=== PATIENT | female | born 1955 | race Caucasian/White ===

== ENCOUNTER 2016-08-10 00:05 | Observation (INO) | payer BC ==
[~2016-08-10] VITALS: Ht 157.5 cm; Wt 58.8 kg
[~2016-08-10 00:05] MED LIST: LISI5TAB3 PO; OLAN-111 PO; [UNRECOGNIZED DRUG - CODE] PO
[2016-08-10] MEDS ORDERED: ASPIRIN 324 MG CHEW PO STA (00:34)
[2016-08-10 00:45] LABS: BASO % 0.3 %; BASO ABS # 0.03 K/uL (0-0.2); COMPLETE YES; EOS % 3.2 %; HEMATOCRIT 34.9 % (37-47); IG% 0.2 %; LYMPH % 28.7 %; MEAN CELL VOLUME 87.7 fL (80-100); MEAN CORPUSCULAR HEMOGLOBIN 30.2 pg (25-34); MEAN CORPUSCULAR HGB CONC 34.4 g/dl (32-36); MEAN PLATELET VOLUME 10.1 fL (7.4-10.4); MONO % 6.7 %; NEUT % 60.9 %; PLATELET COUNT 212 K/uL (130-400); RED BLOOD COUNT 3.98 M/uL (4.2-5.4)
--- NOTE | 2016-08-10 00:48 | EMERGENCY ROOM VISIT NOTE ---
History Report prepared by Fidel: Genevieve Koo Under the Supervision of: Dr. Fadia Hemphill M.D. First contact with patient: 00:24 Chief Complaint: CARDIAC ASSESSMENT Stated Complaint: PRICKLY CRAMPS IN HEART,IN JAW AND LFT HAND/ELBOW History of Present Illness The patient is a 60 year old female who presents to the Emergency Room with complaints of intermittent left sided chest discomfort that began at the beginning of July. The patient states that she has had occasional "prickly cramping" pain in her chest for the past 20 years. The pain was not frequent and occurred at random times. At the beginning at the month, she started having left sided chest pain much more frequently. When her first episode occurred, it felt like a cramping sensation in her chest. She thought she could have been swimming too fast so she slowed down to finish her work out. She has worked out multiple times and has been pain free, but she had another episode of the pain while swimming yesterday. She describes the pain at that time as a nerve pain. Per nursing staff, the patient had 8-10 episodes today which concerned her. When she has the chest pain she does not feel short of breath, but she states that she gets scared to take deep breaths in case something bad would happen. The patient had a stress test which was over 10 years ago. She has a history of CKD and her creatinine runs between 1.4 and 1.6. She reports recent travel to [facility] at the end of last month. She is not a smoker. Denies abdominal pain, nausea, diarrhea, or other complaints. She usually has a bowel movement a day but she has not had a bowel movement for 2 days. Past medical history includes diabetes and hypertension. The patient takes aspirin and took 81 mg today. Source of History: patient Onset: beginning of July Position: chest (left) Quality: other (prickly, cramping) Timing: intermittent Associated Symptoms: No SOB, No abdominal pain, No diarrhea, No nausea Review of Systems See HPI for pertinent positives & negatives. A total of 10 systems reviewed and were otherwise negative. Past Medical & Surgical Medical Problems: (1) Bipolar disorder (2) CKD (chronic kidney disease) (3) Diabetes (4) Hypertension (5) Rhabdomyolysis Family History Cancer Depression Diabetes mellitus Hypertension Kidney disease Social History Smoking Status: Never Smoker Marital Status: Housing Status: lives with significant other Occupation Status: employed Current/Historical Medications Scheduled Alprazolam (Xanax), 0.25 MG PO HS Ascorbic Acid (C-1000/Kayla Hips), 500 MG PO QAM Aspirin (Aspirin Ec), 81 MG PO HS Atorvastatin (Lipitor), 10 MG PO HS Cholecalciferol (Vitamin D3), 2,000 UNITS PO DAILY Coenzyme Q10 (Ubidecarenone) (Co Q10), 100 MG PO BIDM Divalproex Sodium (Depakote), 500 MG PO HS Lisinopril (Zestril), 5 MG PO QAM Multivitamin (Multivitamin), 1 TAB PO DAILY Olanzapine (Zyprexa), 5 MG PO HS Vitamin B Cmplx/Vitc/Folic Ac (Nephrocaps), 1 CAP PO DAILY Allergies Coded Allergies: No Known Allergies (Unverified , 09/11/06) Physical Exam Vital Signs Date Time Temp Pulse Resp B/P Pulse Ox O2 Delivery O2 Flow Rate FiO2 08/10/16 02:15 77 21 109/82 100 Room Air 08/10/16 01:03 69 13 105/73 100 Room Air 08/10/16 00:40 83 08/10/16 00:33 79 24 133/76 98 Room Air 08/10/16 00:30 99 Room Air 08/10/16 00:30 99 Room Air 08/10/16 00:17 36.6 78 20 118/72 99 Room Air Physical Exam Vital signs reviewed. General: Well-appearing 60 year old female, in no significant distress. HEENT: No scleral icterus, PERRLA, neck supple. Atraumatic. Cardiovascular: Regular rate and rhythm, no extra sounds. Pulmonary: Clear to auscultation bilaterally, normal work of breathing. Abdomen: Soft, nontender, nondistended, positive bowel sounds. Musculoskeletal: Atraumatic, no peripheral edema. Neurologic: Patient awake alert and oriented x 3, full strength in all 4 extremities. Cranial nerves 2 through 12 grossly intact. Skin: Warm, dry, no rash Medical Decision & Procedures ER Provider Diagnostic Interpretation: X-ray per my interpretation. Chest x-ray: No focal consolidation. No failure. Laboratory Results Test 08/10/16 00:35 08/10/16 00:43 08/10/16 01:25 Immature Granulocyte % (Auto) 0.2 % White Blood Count 10.10 K/uL (4.8-10.8) Red Blood Count 3.98 M/uL (4.2-5.4) Hemoglobin 12.0 g/dL (12.0-16.0) Hematocrit 34.9 % (37-47) Mean Corpuscular Volume 87.7 fL (80-100) Mean Corpuscular Hemoglobin 30.2 pg (25-34) Mean Corpuscular Hemoglobin Concent 34.4 g/dl (32-36) Platelet Count 212 K/uL (130-400) Mean Platelet Volume 10.1 fL (7.4-10.4) Neutrophils (%) (Auto) 60.9 % Lymphocytes (%) (Auto) 28.7 % Monocytes (%) (Auto) 6.7 % Eosinophils (%) (Auto) 3.2 % Basophils (%) (Auto) 0.3 % Neutrophils # (Auto) 6.15 K/uL (1.4-6.5) Lymphocytes # (Auto) 2.90 K/uL (1.2-3.4) Monocytes # (Auto) 0.68 K/uL (0.11-0.59) Eosinophils # (Auto) 0.32 K/uL (0-0.5) Basophils # (Auto) 0.03 K/uL (0-0.2) Immature Granulocyte # (Auto) 0.02 K/uL (0.00-0.02) Prothrombin Time 10.5 SECONDS (9.0-12.0) Prothromb Time International Ratio 1.0 (0.9-1.1) Magnesium Level 2.5 mg/dl (1.8-2.4) Total Bilirubin 0.2 mg/dl (0.2-1) Direct Bilirubin < 0.1 mg/dl (0-0.2) Aspartate Amino Transf (AST/SGOT) 42 U/L (15-37) Alanine Aminotransferase (ALT/SGPT) 32 U/L (12-78) Alkaline Phosphatase 58 U/L (45-117) Creatine Kinase MB 1.0 ng/ml (0.5-3.6) Creatine Kinase MB Ratio 0.1 (0-3.0) Total Protein 8.1 gm/dl (6.4-8.2) Albumin 3.9 gm/dl (3.4-5.0) Bedside D-Dimer 89 ng/mlFEU (0-450) Bedside Troponin I 0.000 ng/ml (0-0.045) Urine Color COLORLESS Urine Appearance CLEAR (CLEAR) Urine pH 6.5 (4.5-7.5) Urine Specific [place] <= 1.005 (1.000-1.030) Urine Protein NEG (NEG) Urine Glucose (UA) NEG (NEG) Urine Ketones NEG (NEG) Urine Occult Blood NEG (NEG) Urine Nitrite NEG (NEG) Urine Bilirubin NEG (NEG) Urine Urobilinogen NEG (NEG) Urine Leukocyte Esterase NEG (NEG) Laboratory results per my review. Medications Administered Medications (Trade) Dose Ordered Sig/Birgit Route Start Time Stop Time Status Last Admin Dose Admin Aspirin (Aspirin Chew) 324 mg NOW STAT PO 08/10/16 00:34 08/10/16 00:37 DC 08/10/16 01:10 243 MG ECG Indication: chest pain Rate (beats per minute): 83 Findings: RBBB (incomplete), no acute ischemic change, no ectopy ED Course 0030: Past medical records reviewed. The patient was evaluated in room B9. A complete history and physical examination was performed. 0034: Ordered Aspirin 324 mg PO. 0218: Upon reevaluation, the patient is resting comfortably. I discussed laboratory and radiographic results with the patient. She verbalized agreement of the treatment plan. 0240: I discussed the case with Dr. Dugan [place] [facility]. The patient will be evaluated for further management. Medical Decision DDx: Acute coronary syndrome, pulmonary embolus, aortic dissection, musculoskeletal pain, pneumonia, pleural effusion, pneumothorax This pt was evaluated and appeared to be in no distress. IV access was obtained and lab work was drawn. Pt was given baby ASA. Pt was placed on the credit control manager. EKG reveals no acute ischemia with a RBB. CXR is negative to my interpretation. Lab work reveals a neg troponin but elevated total CK of 936. Pt was informed of the findings. B/c of her history of hyperlipidemia and DM, she will be evaluated by the hospitalist for further management. Consults Time Called: [phone] Consulting Physician: Dr. Dugan Returned Call: 0240 I discussed the case with him. The patient will be evaluated for further management. Impression Primary Impression: Exertional chest pain Additional Impression: Elevated CK Scribe Attestation The scribe's documentation has been prepared under my direction and personally reviewed by me in its entirety. I confirm that the note above accurately reflects all work, treatment, procedures, and medical decision making performed by me. Departure Information Dispostion Being Evaluated By Hospitalist Referrals Willie Ragland M.D. (PCP) Patient Instructions [facility] Problem Qualifiers
[2016-08-10 01:05] LABS: ALT/SGPT 32 U/L (12-78); BLOOD UREA NITROGEN 40 mg/dl (7-18); BUN/CREATININE RATIO 24.7 (10-20); CALCIUM 9.1 mg/dl (8.5-10.1); CARBON DIOXIDE 26 mmol/L (21-32); CHLORIDE 100 mmol/L (98-107); GLUCOSE 92 mg/dl (70-99); MAGNESIUM 2.5 mg/dl (1.8-2.4); POTASSIUM 4.2 mmol/L (3.5-5.1); SODIUM 138 mmol/L (136-145)
[2016-08-10 01:08] LABS: ALKALINE PHOSPHATASE 58 U/L (45-117); AST/SGOT 42 U/L (15-37); CKMB/CK RATIO 0.1 (0-3.0)
[2016-08-10 01:56] LABS: MANUAL MICROSCOPIC REQUIRED? NO; REVIEW REQ? NO; URINE APPEARANCE CLEAR (CLEAR); URINE BILIRUBIN NEG (NEG); URINE COLOR COLORLESS; URINE NITRITE NEG (NEG); URINE PH 6.5 (4.5-7.5); URINE SPECIFIC GRAVITY <= 1.005 (1.000-1.030); UROBILINOGEN NEG (NEG)
[2016-08-10] MEDS ORDERED: ASPI81TA28 PO (01:56)
[2016-08-10 01:57] LABS: ZZUR CULT IF INDIC CLEAN CATCH NO
[2016-08-10] MEDS ORDERED: ATOR10TA88 PO (01:57)
[2016-08-10] MEDS ORDERED: DIVA500T59 PO (01:58)
[2016-08-10] MEDS ORDERED: ALPR0.25 PO (02:00)
[2016-08-10] MEDS ORDERED: [UNRECOGNIZED DRUG - CODE] PO (02:01)
[2016-08-10] MEDS ORDERED: MULT-506 PO (02:02)
[2016-08-10] MEDS ORDERED: CHOL20007 PO (02:03)
[2016-08-10] MEDS ORDERED: B-CO1CAP17 PO (02:04)
[2016-08-10] MEDS ORDERED: COEN1CAP28 PO (02:06)
[2016-08-10] MEDS ORDERED: MAGNESIUM HYDROXIDE SUSP 30 ML UDC PO PRN (02:45)
[2016-08-10] MEDS ORDERED: ACETAMINOPHEN 325 MG TAB PO PRN (02:45)
[2016-08-10] MEDS ORDERED: ALUMINUM/MAGNESIUM/SIMETH (MAALOX MAX) 30 ML UDC PO PRN (02:45)
[2016-08-10] MEDS ORDERED: POLYETHYLENE (MIRALAX) 17 GM PACK PO PRN (02:45)
[2016-08-10] MEDS ORDERED: ALPRAZOLAM 0.5 MG TAB PO PRN (02:45)
[2016-08-10] MEDS ORDERED: ONDANSETRON INJ 2 MG/ML 2 ML VIAL IV PRN (02:45)
--- NOTE | 2016-08-10 02:47 | History and Physical ---
History & Physical Date & Time of Service: Aug 10, 2016 at 02:41 Chief Complaint: Prickly Cramps In Heart,In Jaw And Lft Hand/Elbow Primary Care Physician: Willie Ragland M.D. History of Present Illness Source: patient Mrs Brandie Pires is a 60 yo F with bipolar disorder and a long history of chest pain who presents with new chest discomfort since earlier today. She reports she has recently started exerciisng again and swam for an hour yesterday , and did about 60 labs. She reports she went to work today and although she drank usual amounts she felt a prickly sensation in the left side of her chest. She did not report is as pain, and it did not radiate down her arm. It could come and go at rest or exertion as well. It was 9/10 severity. She does not currently have any pain. She last had a stress test 10 years ago. She reports she has had chest pain for the last 20 years without a cause identified. She reports she has CKD from being on metformin for a year. Past Medical/Surgical History Medical Problems: (1) Bipolar disorder Status: Chronic (2) CKD (chronic kidney disease) Status: Chronic (3) Diabetes Status: Chronic (4) Hypertension Status: Chronic Family History Cancer Depression Diabetes mellitus Hypertension Kidney disease Social History Smoking Status: Never Smoker Marital Status: Occupational Status: employed Multi-Drug Resistant Organisms History of MDRO: No Allergies Coded Allergies: No Known Allergies (Unverified , 09/11/06) Home Medications Scheduled Alprazolam (Xanax), 0.25 MG PO HS Ascorbic Acid (C-1000/Kayla Hips), 500 MG PO QAM Aspirin (Aspirin Ec), 81 MG PO HS Atorvastatin (Lipitor), 10 MG PO HS Cholecalciferol (Vitamin D3), 2,000 UNITS PO DAILY Coenzyme Q10 (Ubidecarenone) (Co Q10), 100 MG PO BIDM Divalproex Sodium (Depakote), 500 MG PO HS Lisinopril (Zestril), 5 MG PO QAM Multivitamin (Multivitamin), 1 TAB PO DAILY Olanzapine (Zyprexa), 5 MG PO HS Vitamin B Cmplx/Vitc/Folic Ac (Nephrocaps), 1 CAP PO DAILY Review of Systems See HPI for pertinent positives & negatives. A total of 10 systems reviewed and were otherwise negative. Physical Exam Vital Signs Date Time Temp Pulse Resp B/P Pulse Ox O2 Delivery O2 Flow Rate FiO2 08/10/16 02:15 77 21 109/82 100 Room Air 08/10/16 01:03 69 13 105/73 100 Room Air 08/10/16 00:40 83 08/10/16 00:33 79 24 133/76 98 Room Air 08/10/16 00:30 99 Room Air 08/10/16 00:30 99 Room Air 08/10/16 00:17 36.6 78 20 118/72 99 Room Air General Appearance: WD/WN, no apparent distress Head: normocephalic, atraumatic Eyes: normal inspection ENT: hearing grossly normal Neck: supple, no JVD Respiratory/Chest: lungs clear, normal breath sounds, no respiratory distress Cardiovascular: regular rate, rhythm, no murmur, normal peripheral pulses Abdomen/GI: normal bowel sounds, non tender, soft Back: no CVA tenderness, no muscle spasm, normal range of motion Extremities/Musculoskelatal: normal capillary refill, no pedal edema Neurologic/Psych: alert, + pertinent finding (ANXIOUS, Flattened affect) Skin: no rash Diagnostics Laboratory Results Results Past 24 Hours Test 08/10/16 00:35 08/10/16 00:43 08/10/16 01:25 Range/Units White Blood Count 10.10 4.8-10.8 K/uL Red Blood Count 3.98 4.2-5.4 M/uL Hemoglobin 12.0 12.0-16.0 g/dL Hematocrit 34.9 37-47 % Mean Corpuscular Volume 87.7 80-100 fL Mean Corpuscular Hemoglobin 30.2 25-34 pg Mean Corpuscular Hemoglobin Concent 34.4 32-36 g/dl Platelet Count 212 130-400 K/uL Mean Platelet Volume 10.1 7.4-10.4 fL Neutrophils (%) (Auto) 60.9 % Lymphocytes (%) (Auto) 28.7 % Monocytes (%) (Auto) 6.7 % Eosinophils (%) (Auto) 3.2 % Basophils (%) (Auto) 0.3 % Neutrophils # (Auto) 6.15 1.4-6.5 K/uL Lymphocytes # (Auto) 2.90 1.2-3.4 K/uL Monocytes # (Auto) 0.68 0.11-0.59 K/uL Eosinophils # (Auto) 0.32 0-0.5 K/uL Basophils # (Auto) 0.03 0-0.2 K/uL RDW Standard Deviation 39.3 36.4-46.3 fL RDW Coefficient of Variation 12.2 11.5-14.5 % Immature Granulocyte % (Auto) 0.2 % Immature Granulocyte # (Auto) 0.02 0.00-0.02 K/uL Sodium Level 138 136-145 mmol/L Potassium Level 4.2 3.5-5.1 mmol/L Chloride Level 100 98-107 mmol/L Carbon Dioxide Level 26 21-32 mmol/L Anion Gap 12.0 3-11 mmol/L Blood Urea Nitrogen 40 7-18 mg/dl Creatinine 1.60 0.60-1.20 mg/dl Est Creatinine Clear Calc Drug Dose 32.6 ml/min Estimated GFR () 40.5 Estimated GFR (Non- 34.9 BUN/Creatinine Ratio 24.7 10-20 Random Glucose 92 70-99 mg/dl Calcium Level 9.1 8.5-10.1 mg/dl Magnesium Level 2.5 1.8-2.4 mg/dl Total Bilirubin 0.2 0.2-1 mg/dl Direct Bilirubin < 0.1 0-0.2 mg/dl Aspartate Amino Transf (AST/SGOT) 42 15-37 U/L Alanine Aminotransferase (ALT/SGPT) 32 12-78 U/L Alkaline Phosphatase 58 45-117 U/L Total Creatine Kinase 936 26-192 U/L Creatine Kinase MB 1.0 0.5-3.6 ng/ml Creatine Kinase MB Ratio 0.1 0-3.0 Total Protein 8.1 6.4-8.2 gm/dl Albumin 3.9 3.4-5.0 gm/dl Lipase 443 73-393 U/L Bedside D-Dimer 89 0-450 ng/mlFEU Bedside Troponin I 0.000 0-0.045 ng/ml Urine Color COLORLESS Urine Appearance CLEAR CLEAR Urine pH 6.5 4.5-7.5 Urine Specific [place] <= 1.005 1.000-1.030 Urine Protein NEG NEG Urine Glucose (UA) NEG NEG Urine Ketones NEG NEG Urine Occult Blood NEG NEG Urine Nitrite NEG NEG Urine Bilirubin NEG NEG Urine Urobilinogen NEG NEG Urine Leukocyte Esterase NEG NEG CXR normal Normal EKG Impression Assessment and Plan 60 yo F found to have elevated CK and mild renal impairment after exercising - concerned for rhabdomyolysis. PLAN Rhabdomyolysis - NSS 150mL/hour - Trend CK levels - Med/Surg, observation - Hold statin CAD - Continue aspirin Bipolar disorder - Continue Depakote and Olanzapine Anxiety - Continue Xanax at night FULL CODE *NOTE: patient is incredibly anxious about having to be on dialysis due to renal impairment - multiple questions answered. She is then anxious about if she is able to swim tomorrow, I told her this would be determined by the discharge team. VTE Prophylaxis VTE Risk Assessment Done? Y/N: Yes Risk Level: Moderate Resident Tracking Resident Involvement: Resident Care Provided Care Provided: [facility] Medicine Assessment and Plan ATTENDING ADDENDUM: I have seen and examined this patient, have directed their medical care, have supervised the biomedical specialist, and agree with the H&P as noted above, with the additions as noted below. History of Present Illness: The patient is a 60-year-old female with a 20+ year history of intermittent chest discomfort, who swims 55-60 laps daily and one hour, developed a different type of left-sided chest sensation that was prickly in nature, and presented to the emergency department with concerns regarding heart disease. This was not a pain per se, and did not radiate toward her jaw shoulder or arm. She did have a stress test done approximately 10 years ago which was normal. She reports that she developed chronic kidney disease from being on metformin for year. Review of Systems: The patient denies chest pain, palpitations, shortness of breath, cough, lower extremity swelling, vision change, hearing change, sore throat, fevers, chills, sweats, weight change, fatigue, nausea, vomiting, abdominal pain, pelvic pain, blood in urine or stool, dysuria, urinary frequency or urgency, lightheadedness , dizziness, headache, memory loss, rash, abnormal bruising or bleeding, imbalance, focal or generalized weakness, numbness or tingling in arms or legs, arthralgias or myalgias, back or neck pain, night sweats, or allergy symptoms. The review of systems is otherwise negative other than for that already noted above, and at least 10 systems have been reviewed. Physical Exam: The patient is awake, well-developed and adequately nourished, alert and oriented 3, normocephalic and atraumatic, lying in bed and in no acute distress. HEENT--PERRL, EOMI, mucous membranes moist, and oropharynx normal. Neck--supple, no JVD or bruits, thyroid normal, trachea midline, no adenopathy. Heart--normal S1 and S2, no extra beats, no murmurs, rubs or gallops. Lungs--clear bilaterally with good air movement, no respiratory distress, no accessory muscle use. Chest Wall--reproducible pain upon pressure to ribs under her left breast margin. Abdomen--normal bowel sounds and soft, nontender and nondistended, no hernias or masses, no organomegaly. Extremities--no cyanosis, clubbing or edema. There are good distal pulses b/l. Dermatologic--normal skin turgor, normal color, warm and dry, no abnormal lymph nodes, no rash. Neurologic--cranial nerves II through XII grossly intact, motor and sensory examination normal. Rheumatologic--normal range of motion, nontender, muscles and joints. Psychiatric--normal affect. Assessment and Plan: Early rhabdomyolysis/acute on chronic renal insufficiency--CK was 936, and creatinine 1.6. He would be prudent to admit the patient in observation mode, aggressively hydrate with IV fluids and repeat CK and basic metabolic panel later on in the day to follow progress of recovery. Continue CoQ10, 100 mg by mouth twice a day Left-sided chest discomfort/costochondritis--noncardiac. We'll place on Voltaren gel 4 times a day when necessary. Anxiety--continue Xanax 0.25 mg by mouth at bedtime, Depakote 500 mg by mouth at bedtime, and Zyprexa 5 mg by mouth at bedtime. Hypertension/renal insufficiency --hold lisinopril 5 mg by mouth every morning. Hypercholesterolemia--has been on atorvastatin 10 mg by mouth at bedtime. Question whether the statin may have a contributor factor and elevated CK in the setting of rigorous exercise. If her muscle enzymes remain elevated, or she would develop more generalized myalgias, could consider trial off the statin for 3-6 month interval and recheck enzymes at that point. Would continue CoQ10 100 mg by mouth twice a day with meals.
[2016-08-10 03:29] VITALS: BP 122/69; PULSE 94; TEMP 36.5; O2SAT 95; Ht 157.5 cm; Wt 58.8 kg
[2016-08-10] MEDS: DICLOFENAC SOD 1% GEL 100 GM TUBE EXT SCH ×2 (03:49→08:00)
[2016-08-10] MEDS: SODIUM CHLORIDE 0.9% 1000ML 1,000 ML IV SCH ×2 (03:50→09:15)
[2016-08-10 04:00] LABS: PROTHROMBIN TIME (PATIENT) 10.5 SECONDS (9.0-12.0)
[2016-08-10] MEDS ORDERED: IV FLUIDS COMPLETED PRN (04:00)
--- NOTE | 2016-08-10 07:21 | DIAGNOSTIC IMAGING REPORT ---
SINGLE VIEW CHEST CLINICAL HISTORY: Atypical chest pain. FINDINGS: An AP, portable, upright chest radiograph is compared to study dated 09/11/2006. The examination is degraded by portable technique and patient rotation. The cardiomediastinal silhouette is unremarkable. The lungs and pleural spaces are clear. No pneumothorax is seen. The skeletal structures are osteopenic. The bony thorax is grossly intact. IMPRESSION: No active disease in the chest. Electronically signed by: Riley Oh M.D. 08/10/2016 7:20 AM Dictated Date/Time: 08/10/2016 7:19 AM
[2016-08-10 07:29] LABS: MEAN CELL VOLUME 87.8 fL (80-100); MEAN CORPUSCULAR HEMOGLOBIN 30.6 pg (25-34); MEAN CORPUSCULAR HGB CONC 34.8 g/dl (32-36); MEAN PLATELET VOLUME 10.4 fL (7.4-10.4); PLATELET COUNT 183 K/uL (130-400); RED BLOOD COUNT 3.76 M/uL (4.2-5.4); WHITE BLOOD COUNT 7.56 K/uL (4.8-10.8)
[2016-08-10 07:52] LABS: POTASSIUM 4.3 mmol/L (3.5-5.1)
[2016-08-10 07:53] LABS: BUN/CREATININE RATIO 24.5 (10-20); CREATININE 1.4 mg/dl (0.60-1.20)
[2016-08-10 07:56] VITALS: BP 104/71; PULSE 67; TEMP 36.2; O2SAT 100
[2016-08-10 08:00] VITALS: O2SAT 100
[2016-08-10] MEDS ORDERED: NON-FORMULARY MEDICATION (Coenzyme Q10 (Ubidecarenone) (Co Q10) 100 MG) PO SCH (08:00)
--- NOTE | 2016-08-10 08:35 | Discharge Instructions ---
Discharge Instructions Admission Reason for Admission: Rhabdomyolysis Discharge Discharge Diagnosis / Problem: Elevated CK Discharge Goals Goal(s): Diagnostic testing Activity Recommendations Activity Limitations: resume your previous activity Exercise/Sports Limitations: rest today, gradually increase as tolerated Shower/Bathe: no limitations Driving or Machine Use: no limitations . Instructions / Follow-Up Instructions / Follow-Up As you know you were admitted to the hospital because an enzyme called CK was elevated. We wanted to make sure that your levels would decrease overnight which they did! Great news! This can be elevated when you work out a little too hard at the gym however if they get too high they can cause damage to the kidney. As they are improving that is a great thing! Remember to drinks lots of water while you work out. We still recommend you hold your statin tonight and you can restart it tomorrow. Please follow up with your PCP in the next 1-2 weeks We wish you well Sophie Santos Current Hospital Diet Patient's current hospital diet: Renal Diet Discharge Diet Recommended Diet: Renal Diet Pending Studies Studies pending at discharge: no Laboratory Results Hemoglobin A1c Test 06/12/16 09:45 Range/Units Estimated Average Glucose 114 mg/dl Hemoglobin A1c 5.6 4.5-5.6 % Medical Emergencies . Who to Call and When: Medical Emergencies: If at any time you feel your situation is an emergency, please call 911 immediately. . Non-Emergent Contact Non-Emergency issues call your: Primary Care Provider Call Non-Emergent contact if: you have a fever, your pain is unusual for you . . "Provider Documentation" section prepared by Naomi Santos. VTE Core Measure Inpt VTE Proph given/why not?: Unfractionated heparin SQ
[2016-08-10] MEDS ORDERED: NEPHROCAPS PO SCH (09:00)
[2016-08-10] MEDS ORDERED: ASCORBIC ACID 500 MG TAB PO SCH (09:00)
[2016-08-10] MEDS ORDERED: CHOLECALCIFEROL 1000 INTER.UNIT TAB PO SCH (09:00)
[2016-08-10] MEDS ORDERED: HEPARIN SOD 5000 UNIT/0.5 ML CARP SQ SCH (09:00)
[2016-08-10 13:59] VITALS: BP 104/71; PULSE 67; TEMP 36.2; O2SAT 100
--- NOTE | 2016-08-10 14:20 | Discharge Summary ---
Discharge Summary Admission Date: Aug 10, 2016 at 02:41 Discharge Date: Aug 10, 2016 Discharge Disposition: Home Principal Diagnosis: rhabdomylysis (Naomi Santos MD) Discharge Disposition: Home Principal Diagnosis: muscular L sided chest pain (Trevon Marvin D.O.) Medication Reconciliation Continued Medications: Alprazolam (Xanax) 0.25 Mg Tab 0.25 MG PO HS, TAB Ascorbic Acid (C-1000/Kayla Hips) 1,000 Mg Tab 500 MG PO QAM Aspirin (Aspirin Ec) 81 Mg Tab 81 MG PO HS Atorvastatin (Lipitor) 10 Mg Tab 10 MG PO HS, TAB Cholecalciferol (Vitamin D3) 2,000 Unit Tab 2000 UNITS PO DAILY, TAB Coenzyme Q10 (Ubidecarenone) (Co Q10) 50 Mg Cap 100 MG PO BIDM, CAP Divalproex Sodium (Depakote) 500 Mg Tab 500 MG PO HS for 30 Days, TAB 2 Refills Lisinopril (Zestril) 5 Mg Tab 5 MG PO QAM, 0 Refills Multivitamin (Multivitamin) Tab 1 TAB PO DAILY, TAB Olanzapine (Zyprexa) 5 Mg Tab 5 MG PO HS, 0 Refills Vitamin B Cmplx/Vitc/Folic Ac (Nephrocaps) Cap 1 CAP PO DAILY, CAP Discharge Exam Doing well, pain resolved questions and concerns addressed and agreeable to d/c Review of Systems: Constitutional: No fever Eyes: No worsening of vision ENT: No hearing loss Respiratory: No cough, No dyspnea at rest, No dyspnea on exertion, No shortness of breath, No sputum, No wheezing Cardiovascular: No chest pain Abdomen: No constipation, No diarrhea, No nausea, No pain, No vomiting Musculoskeletal: No joint pain, No muscle pain Genitourinary - Female: No dysuria, No hematuria Neurologic: No balance problems, No numbness/tingling, No paralysis Psychiatric: + anxiety, No depression symptoms Endocrine: No fatigue Physical Exam: General Appearance: WD/WN, no apparent distress Eyes: normal inspection ENT: normal ENT inspection Neck: supple Respiratory/Chest: lungs clear, normal breath sounds, no respiratory distress, no accessory muscle use Cardiovascular: regular rate, rhythm, no murmur, + pertinent finding ( reproducible chest pain with palpation of left rib cage) Abdomen / GI: normal bowel sounds, non tender, soft Extremities: no calf tenderness, no pedal edema Neurologic/Psychiatric: alert, normal mood/affect, oriented x 3 Skin: normal color, warm/dry, no rash Lymphatic: no adenopathy (Naomi Santos MD) Hospital Course This is a 60 yo f that presented to the ED with "prickly like" chest pain in the left lower rib cage. She had this pain on and off for approx 20 years but occurring more frequently recently and thought because of her risk factors that she should make sure it isn't cardiac. She was also found to have a slightly elevated CK and a Cr of 1.6 (bl 1.4-1.6). Troponin was negative and CK improved overnight as well as Cr with some fluids. She was reevaluated in the am and the pain is most likely secondary to costochondritis and manipulation was done prior to d/c. She was given information on chiropractics. We recommended close follow up with PCP. Total Time Spent: Less than 30 minutes This includes examination of the patient, discharge planning, medication reconciliation, and communication with other providers. (Naomi Santos MD) Resident Physician Supervision Note: I interviewed and examined the patient. Discussed with Dr. Santos and agree with findings and plan as documented in the note. Any exceptions or clarifications are listed here: None Documented By: Trevon Marvin came to ER w tingling L sided chest pain - vigorous swimmer. no cp no sob no fatigue w swimming, and did not feel like workout was harder than usual. after swimming tingling and cramping pain L chest - due to DM/CKD/etc she wanted to r/ o ACS. hx and exam c/w muscular pain - enzymes negative despite prolonged duration of pain. stable for discharge to home. vitals noted nad breathing unlabored. L sided ribs inhaled w decreased ROM - and L pec major and minor high tone/tender/decreased ROM - LAS done with improvement in tissue of pec minor area (no real improvement pec major area) and improvement in rib ROM after treatment a/p chest pain - muscular. discussed ongoing manipulative medicine if current treatment doesn't resolve problem (d/w her that rib muscle related problems typically do take multiple treatments to correct) - stretches/yoga discussed as well. fortunately appears noncardiac somatic dysfunction rib cage region - OMT as above stable for discharge (Trevon Marvin, D.O.) Discharge Instructions Please refer to the electronic Patient Visit Report (Discharge Instructions) for additional information. (Naomi Santos MD) Additional Copies To Willie Ragland M.D.
[2016-08-10] MEDS ORDERED: ASPIRIN 81 MG ECTAB PO SCH (21:00)
[2016-08-10] MEDS ORDERED: OLANZAPINE 5 MG TAB PO SCH (21:00)
[2016-08-10] MEDS ORDERED: DIVALPROEX SODIUM 500 MG DELAY RELEASE TAB PO SCH (21:00)
== END 2016-08-10 14:05 | disposition home or self-care (01) ==
LOC: ENRESERVDT → ENRESERVTM → C.EDB 00:08 → C.MS2W 02:41
PROVIDERS: ADMIT Hospitalist; ATTEND Hospitalist
DX: M62.82 Rhabdomyolysis (principal); R07.89 Other chest pain; F31.9 Bipolar disorder, unspecified; F41.9 Anxiety disorder, unspecified; E78.00 Pure hypercholesterolemia, unspecified; N18.9 Chronic kidney disease, unspecified; I12.9 Hypertensive chronic kidney disease with stage 1 through stage 4 chronic kidney disease, or unspecified chronic kidney disease; E11.9 Type 2 diabetes mellitus without complications; I45.10 Unspecified right bundle-branch block; Z79.82 Long term (current) use of aspirin; Z83.3 Family history of diabetes mellitus; Z84.1 Family history of disorders of kidney and ureter; Z82.49 Family history of ischemic heart disease and other diseases of the circulatory system

== ENCOUNTER → 2016-10-29 | Outpatient (CLI) | payer BC ==
[~2016-10-29] MED LIST changes: +ALPR0.25 PO; +ASPI81TA28 PO; +ATOR10TA82 PO; +B-CO1CAP17 PO; +CHOL20007 PO; +COEN1CAP28 PO; +DIVA500T59 PO; +MULT-506 PO; +[UNRECOGNIZED DRUG - CODE] PO; -[UNRECOGNIZED DRUG - CODE] PO
[2016-10-29 14:53] LABS: HEMATOCRIT 35.3 % (37-47); MEAN CELL VOLUME 89.6 fL (80-100); MEAN CORPUSCULAR HEMOGLOBIN 30.2 pg (25-34); MEAN CORPUSCULAR HGB CONC 33.7 g/dl (32-36); PLATELET COUNT 201 K/uL (130-400); RED BLOOD COUNT 3.94 M/uL (4.2-5.4); WHITE BLOOD COUNT 6.71 K/uL (4.8-10.8)
[2016-10-29 15:12] LABS: ESTIMATED AVERAGE GLUCOSE 117 mg/dl; HA1C FLAG Normal (Normal)
[2016-10-29 15:40] LABS: ALT/SGPT 25 U/L (12-78); AST/SGOT 20 U/L (15-37); BLOOD UREA NITROGEN 42 mg/dl (7-18); CALCIUM 9.3 mg/dl (8.5-10.1); CARBON DIOXIDE 26 mmol/L (21-32); CHLORIDE 100 mmol/L (98-107); GLUCOSE 88 mg/dl (70-99); POTASSIUM 4.7 mmol/L (3.5-5.1); SODIUM 136 mmol/L (136-145)
[2016-10-29 15:50] LABS: ALB/GLOB RATIO 0.9 (0.9-2); ALKALINE PHOSPHATASE 53 U/L (45-117); CHOLESTEROL 158 mg/dl (0-200); CHOLESTEROL/HDL RATIO 2.6; HDL CHOLESTEROL 60 mg/dl; LDL CHOLESTEROL CALCULATED 77 mg/dl; THYROID STIMULATING HORMONE 0.417 uIu/ml (0.300-4.500); TRIGLYCERIDES 107 mg/dl (0-150); VERY LOW DENSITY LIPOPROT CALC 21 mg/dl
== END | disposition home or self-care (01) ==
LOC: C.LABBC 10:20
PROVIDERS: ATTEND Internal Medicine Geriatric Medicine
DX: I12.9 Hypertensive chronic kidney disease with stage 1 through stage 4 chronic kidney disease, or unspecified chronic kidney disease (principal); E11.22 Type 2 diabetes mellitus with diabetic chronic kidney disease; N18.9 Chronic kidney disease, unspecified; E78.5 Hyperlipidemia, unspecified; E55.9 Vitamin D deficiency, unspecified; D12.6 Benign neoplasm of colon, unspecified; E04.2 Nontoxic multinodular goiter; D64.9 Anemia, unspecified; Z11.59 Encounter for screening for other viral diseases

== ENCOUNTER → 2016-11-06 | Outpatient (CLI) | payer BC ==
--- NOTE | 2016-11-06 09:32 | DIAGNOSTIC IMAGING REPORT ---
EXAMINATION: RENAL ULTRASOUND CLINICAL HISTORY: Chronic renal disease COMPARISON STUDY: CT scan performed May 2009 FINDINGS: The right kidney measures 10.2 cm. The left kidney measures 10.9 cm. There is no significant hydronephrosis. There is borderline dilatation of the proximal right ureter. Multiple small cysts are visualized. There is increased renal cortical echogenicity consistent with medical renal disease. No bladder lesions are visualized. The patient's right ureteral jet was not visualized. IMPRESSION : 1. Increased renal cortical echogenicity, consistent with medical renal disease 2. Borderline dilatation of the proximal right ureter. 3. Nonvisualization of the right ureteral jet Electronically signed by: Pa Liang M.D. 11/06/2016 9:29 AM Dictated Date/Time: 11/06/2016 9:26 AM
== END | disposition home or self-care (01) ==
LOC: C.ULTRBC 08:49
PROVIDERS: ATTEND Internal Medicine Geriatric Medicine
DX: N18.9 Chronic kidney disease, unspecified (principal)

== ENCOUNTER → 2016-11-29 | Outpatient (CLI) | payer BC ==
[2016-11-29 17:47] LABS: HEMATOCRIT 34.9 % (37-47); MEAN CELL VOLUME 89.7 fL (80-100); MEAN CORPUSCULAR HEMOGLOBIN 29.6 pg (25-34); MEAN PLATELET VOLUME 10.8 fL (7.4-10.4); PLATELET COUNT 201 K/uL (130-400); RED BLOOD COUNT 3.89 M/uL (4.2-5.4); WHITE BLOOD COUNT 7.06 K/uL (4.8-10.8)
[2016-11-29 17:59] LABS: URINE APPEARANCE CLEAR (CLEAR); URINE BILIRUBIN NEG (NEG); URINE COLOR YELLOW; URINE EPITHELIAL CELL AUTO 0-5 /lpf (0-5); URINE NITRITE NEG (NEG); URINE PH 7.5 (4.5-7.5); URINE SPECIFIC GRAVITY 1.007 (1.000-1.030); UROBILINOGEN NEG (NEG)
[2016-11-29 18:01] LABS: MANUAL MICROSCOPIC REQUIRED? NO; REVIEW REQ? NO
[2016-11-29 18:24] LABS: URINE TOTAL PROTEIN < 5.0 mg/dl (0-11.9)
[2016-11-29 18:49] LABS: ALB/GLOB RATIO 0.9 (0.9-2); ALKALINE PHOSPHATASE 52 U/L (45-117); ALT/SGPT 22 U/L (12-78); AST/SGOT 17 U/L (15-37); BLOOD UREA NITROGEN 47 mg/dl (7-18); BUN/CREATININE RATIO 29.5 (10-20); CARBON DIOXIDE 30 mmol/L (21-32); CHLORIDE 104 mmol/L (98-107); GLUCOSE 83 mg/dl (70-99); SODIUM 140 mmol/L (136-145)
== END | disposition home or self-care (01) ==
LOC: C.LABBC 15:24
PROVIDERS: ATTEND Internal Medicine Nephrology
DX: I12.9 Hypertensive chronic kidney disease with stage 1 through stage 4 chronic kidney disease, or unspecified chronic kidney disease (principal); N18.9 Chronic kidney disease, unspecified; E55.9 Vitamin D deficiency, unspecified; N13.30 Unspecified hydronephrosis; E87.1 Hypo-osmolality and hyponatremia

== ENCOUNTER → 2016-12-17 | Outpatient (CLI) | payer BC ==
--- NOTE | 2016-12-17 11:17 | DIAGNOSTIC IMAGING REPORT ---
CT SCAN OF THE ABDOMEN AND PELVIS WITHOUT IV CONTRAST CLINICAL HISTORY: Chronic kidney disease. Mildly dilated right ureter suggested by renal ultrasound. COMPARISON STUDY: Renal ultrasound dated 11/06/2016. Abdominal CT dated 05/29/2009. TECHNIQUE: CT scan of the abdomen and pelvis is performed from the lung bases to the proximal femora. Images are reviewed in the axial, sagittal, and coronal planes. IV contrast was not administered for this examination as per the referring clinician. Automated dose control exposure was utilized. CT DOSE: 270.93 mGy.cm FINDINGS: Lung bases: The heart is normal in size and without pericardial effusion. The lung bases are clear. Liver: The unenhanced liver is normal in size, contour, and attenuation. There is no intrahepatic biliary ductal dilatation. Gallbladder: Contracted. Spleen: Normal in size and attenuation. Pancreas: Unremarkable. Adrenal glands: Unremarkable. Kidneys: The unenhanced kidneys demonstrate cortical atrophy and are without hydronephrosis. There are no renal calculi identified. Small renal cysts measure up to 1.2 cm. Additional subcentimeter cortical hypodensities also likely represent cysts but are too small for definitive characterization. There is trace nonspecific perinephric stranding. Abdominal vasculature: The abdominal aorta is normal in course and caliber noting mild atherosclerotic calcification. Bowel: The small bowel and colon are normal in course and caliber. There are scattered colonic diverticula without CT evidence of acute diverticulitis. Mild colonic fecal retention is observed. A fat-containing structure adjacent to the sigmoid colon on image #[id number] likely represents a chronically torsed epiploic appendage. The appendix is well-visualized and normal. Peritoneum: There is no intraperitoneal free air or abdominal ascites. Lymphadenopathy: None. Pelvic viscera: The the bladder wall appears markedly thickened. The uterus and adnexa are normal as visualized. Skeletal structures: The skeletal structures are osteopenic. Only minimal lumbosacral spondylosis is observed. No lytic or blastic lesions are seen. IMPRESSION: 1. The kidneys demonstrate cortical atrophy and are without hydronephrosis. No renal calculi are identified. 2. The bladder wall appears markedly thickened. Correlation with clinical findings and urinalysis will be required. 3. The kidneys appear slightly heterogeneous and there is trace nonspecific perinephric stranding. This is nonspecific and could be related to acute renal injury or possibly ascending infection/pyelonephritis. Correlation with clinical findings and urinalysis will be required. 4. There are scattered colonic diverticula without CT evidence of acute diverticulitis. 5. Additional findings as above. Electronically signed by: Riley Oh M.D. 12/17/2016 11:15 AM Dictated Date/Time: 12/17/2016 11:08 AM
== END | disposition home or self-care (01) ==
LOC: C.CTS 10:46
PROVIDERS: ATTEND Urology
DX: N13.30 Unspecified hydronephrosis (principal); N26.1 Atrophy of kidney (terminal); K57.30 Diverticulosis of large intestine without perforation or abscess without bleeding

== ENCOUNTER → 2017-01-18 | Outpatient (CLI) | payer BC ==
[~2017-01-18] MED LIST changes: -ATOR10TA82 PO; +ATOR10TA88 PO
--- NOTE | 2017-01-18 15:09 | MAMMOGRAPHY REPORT ---
BILATERAL DIGITAL SCREENING MAMMOGRAM WITH CAD: 01/18/2017 CLINICAL HISTORY: Routine screening. Patient has no complaints. TECHNIQUE: Current study was also evaluated with a Computer Aided Detection (CAD) system. Bilateral CC and MLO views were obtained. COMPARISON: Comparison is made to exams dated: 01/17/2016 mammogram, 01/12/2015 mammogram, 01/07/2014 tamia mogram, 01/02/2013 mammogram, 12/31/2011 mammogram, and 12/26/2010 mammogram - [facility]. BREAST COMPOSITION: There are scattered areas of fibroglandular density in both breasts. FINDINGS: No suspicious masses, calcifications, or areas of architectural distortion are noted in ei ther breast. There has been no significant interval change compared to prior exams. IMPRESSION: ACR BI-RADS CATEGORY 1: NEGATIVE There is no mammographic evidence of malignancy. A 1 year screening mammogram is recommended. The pa tient will receive written notification of the results. Approximately 10% of breast cancers are not detected with mammography. A negative mammographic report should not delay biopsy if a clinically suggestive mass is present. Jyothi Torres M.D. /:01/18/2017 12:28:43 Test Lab Technician: Mya MONTERO)([place]), [facility] letter sent: Normal 1/2 BI-RADS Code: ACR BI-RADS Category 1: Negative
== END | disposition home or self-care (01) ==
LOC: C.MAMM 09:42
PROVIDERS: ATTEND Obstetrics & Gynecology
DX: Z12.31 Encounter for screening mammogram for malignant neoplasm of breast (principal)

== ENCOUNTER → 2017-01-29 | Outpatient (CLI) | payer BC ==
[2017-01-29 14:25] LABS: BASO % 0.4 %; BASO ABS # 0.02 K/uL (0-0.2); COMPLETE YES; EOS % 6.1 %; HEMATOCRIT 35.7 % (37-47); IG% 0.2 %; LYMPH % 31.3 %; LYMPH ABS # 1.65 K/uL (1.2-3.4); MEAN CELL VOLUME 90.2 fL (80-100); MEAN CORPUSCULAR HEMOGLOBIN 30.8 pg (25-34); MEAN CORPUSCULAR HGB CONC 34.2 g/dl (32-36); MEAN PLATELET VOLUME 10.4 fL (7.4-10.4); PLATELET COUNT 204 K/uL (130-400); RED BLOOD COUNT 3.96 M/uL (4.2-5.4); WHITE BLOOD COUNT 5.27 K/uL (4.8-10.8)
[2017-01-29 14:41] LABS: ALKALINE PHOSPHATASE 55 U/L (45-117); ALT/SGPT 22 U/L (12-78); AST/SGOT 18 U/L (15-37)
== END | disposition home or self-care (01) ==
LOC: C.LABBC 09:55
PROVIDERS: ATTEND Psychiatry & Neurology Psychiatry
DX: F31.9 Bipolar disorder, unspecified (principal)

== ENCOUNTER → 2017-02-07 | Outpatient (CLI) | payer BC ==
[2017-02-07 17:21] LABS: HEMATOCRIT 33.7 % (37-47); MEAN CELL VOLUME 89.4 fL (80-100); MEAN CORPUSCULAR HEMOGLOBIN 30.5 pg (25-34); MEAN CORPUSCULAR HGB CONC 34.1 g/dl (32-36); MEAN PLATELET VOLUME 10.4 fL (7.4-10.4); PLATELET COUNT 201 K/uL (130-400); RED BLOOD COUNT 3.77 M/uL (4.2-5.4); WHITE BLOOD COUNT 6.91 K/uL (4.8-10.8)
[2017-02-07 17:33] LABS: BLOOD UREA NITROGEN 42 mg/dl (7-18); GLUCOSE 85 mg/dl (70-99)
[2017-02-07 17:34] LABS: BUN/CREATININE RATIO 23.3 (10-20); CALCIUM 9.5 mg/dl (8.5-10.1); CARBON DIOXIDE 25 mmol/L (21-32); CHLORIDE 104 mmol/L (98-107); PHOSPHORUS 4.1 mg/dl (2.5-4.9); POTASSIUM 4.7 mmol/L (3.5-5.1); SODIUM 135 mmol/L (136-145)
== END | disposition home or self-care (01) ==
LOC: C.LABBC 14:45
PROVIDERS: ATTEND Internal Medicine Nephrology
DX: N18.9 Chronic kidney disease, unspecified (principal); I12.9 Hypertensive chronic kidney disease with stage 1 through stage 4 chronic kidney disease, or unspecified chronic kidney disease; E55.9 Vitamin D deficiency, unspecified; D64.9 Anemia, unspecified; N13.30 Unspecified hydronephrosis; E87.1 Hypo-osmolality and hyponatremia

== ENCOUNTER → 2017-04-15 | Outpatient (CLI) | payer BC | END | disposition home or self-care (01) | LOC: C.PAPS 10:17 | PROVIDERS: ATTEND Physician Assistant | DX: Z01.419 Encounter for gynecological examination (general) (routine) without abnormal findings (principal) ==

== ENCOUNTER → 2017-05-20 | Outpatient (CLI) | payer BC ==
[~2017-05-20] MED LIST changes: +ATOR10TA82 PO; -ATOR10TA88 PO
[2017-05-20 17:10] LABS: HEMATOCRIT 33.5 % (37-47); MEAN CELL VOLUME 91.3 fL (80-100); MEAN CORPUSCULAR HEMOGLOBIN 30.8 pg (25-34); MEAN CORPUSCULAR HGB CONC 33.7 g/dl (32-36); MEAN PLATELET VOLUME 10.7 fL (7.4-10.4); PLATELET COUNT 211 K/uL (130-400); RED BLOOD COUNT 3.67 M/uL (4.2-5.4); WHITE BLOOD COUNT 7.48 K/uL (4.8-10.8)
[2017-05-20 17:16] LABS: ALT/SGPT 23 U/L (12-78); AST/SGOT 19 U/L (15-37); BLOOD UREA NITROGEN 46 mg/dl (7-18); CALCIUM 9.4 mg/dl (8.5-10.1); CARBON DIOXIDE 26 mmol/L (21-32); CHLORIDE 101 mmol/L (98-107); CREATININE 1.85 mg/dl (0.60-1.20); GLUCOSE 95 mg/dl (70-99); POTASSIUM 4.9 mmol/L (3.5-5.1); SODIUM 135 mmol/L (136-145)
[2017-05-20 17:18] LABS: ALB/GLOB RATIO 0.9 (0.9-2); ALKALINE PHOSPHATASE 54 U/L (45-117)
[2017-05-20 17:21] LABS: URINE APPEARANCE CLEAR (CLEAR); URINE BILIRUBIN NEG (NEG); URINE COLOR YELLOW; URINE EPITHELIAL CELL AUTO 0-5 /lpf (0-5); URINE NITRITE NEG (NEG); URINE SPECIFIC GRAVITY 1.011 (1.000-1.030); UROBILINOGEN NEG (NEG)
[2017-05-20 17:25] LABS: MANUAL MICROSCOPIC REQUIRED? NO; REVIEW REQ? NO
[2017-05-20 17:34] LABS: CREATININE, URINE 49.7 mg/dl; URINE PROTIEN/CREAT RATIO 0.1 (0-0.2); URINE TOTAL PROTEIN 6.4 mg/dl (0-11.9)
[2017-05-21 06:01] LABS: ESTIMATED AVERAGE GLUCOSE 111 mg/dl; HA1C FLAG Normal (Normal)
== END | disposition home or self-care (01) ==
LOC: C.LABBC 13:39
PROVIDERS: ATTEND Internal Medicine Nephrology
DX: I12.9 Hypertensive chronic kidney disease with stage 1 through stage 4 chronic kidney disease, or unspecified chronic kidney disease (principal); E11.22 Type 2 diabetes mellitus with diabetic chronic kidney disease; N18.9 Chronic kidney disease, unspecified; E55.9 Vitamin D deficiency, unspecified; D64.9 Anemia, unspecified; E87.1 Hypo-osmolality and hyponatremia

== ENCOUNTER → 2017-06-03 | Outpatient (CLI) | payer BC ==
[2017-06-03 13:44] LABS: BASO % 0.5 %; BASO ABS # 0.03 K/uL (0-0.2); COMPLETE YES; EOS % 5.2 %; HEMATOCRIT 35.2 % (37-47); IG% 0.3 %; LYMPH % 32.9 %; MEAN CORPUSCULAR HEMOGLOBIN 30.5 pg (25-34); MEAN CORPUSCULAR HGB CONC 33.5 g/dl (32-36); MEAN PLATELET VOLUME 10.5 fL (7.4-10.4); MONO % 4.2 %; NEUT % 56.9 %; PLATELET COUNT 212 K/uL (130-400); RED BLOOD COUNT 3.87 M/uL (4.2-5.4); WHITE BLOOD COUNT 5.77 K/uL (4.8-10.8)
[2017-06-03 14:09] LABS: HEPATITIS B AB POS
[2017-06-03 14:32] LABS: ALKALINE PHOSPHATASE 60 U/L (45-117); ALT/SGPT 24 U/L (12-78); AST/SGOT 18 U/L (15-37)
== END | disposition home or self-care (01) ==
LOC: C.LABBC 10:23
PROVIDERS: ATTEND Psychiatry & Neurology Child & Adolescent Psychiatry
DX: Z00.00 Encounter for general adult medical examination without abnormal findings (principal); F31.76 Bipolar disorder, in full remission, most recent episode depressed

== ENCOUNTER → 2017-11-16 | Outpatient (CLI) | payer BC | END | disposition home or self-care (01) | LOC: C.LAB1850 09:11 | PROVIDERS: ATTEND Physician Assistant Medical | DX: N18.9 Chronic kidney disease, unspecified (principal); R33.9 Retention of urine, unspecified ==

== ENCOUNTER → 2018-02-17 | Outpatient (CLI) | payer BC ==
[~2018-02-17] MED LIST changes: -B-CO1CAP17 PO; +B-COCAP2 PO; +LISI-729 PO; -LISI5TAB3 PO; +MISCCAP80 PO
== END | disposition home or self-care (01) ==
LOC: C.LABBC 09:10
PROVIDERS: ATTEND Psychiatry & Neurology Child & Adolescent Psychiatry
DX: F31.74 Bipolar disorder, in full remission, most recent episode manic (principal)

== ENCOUNTER 2024-09-14 13:22 | Observation (INO) ==
[2024-09-14 15:18] LABS: Alanine Aminotransferase 17 U/L (7-52); Albumin Globulin Ratio 1.3 (0.9-2); Alkaline Phosphatase 63 U/L (34-104); Anion Gap 6 (3-11); Aspartate Aminotransferase 29 U/L (13-39); BUN Creatinine Ratio 21.4 (10-20); Bilirubin,Total 0.4 mg/dl (0.2-1.0); Blood Urea Nitrogen 40 mg/dl (6-23); Calcium 9.6 mg/dl (8.6-10.3); Carbon Dioxide 26 mmol/L (21-32); Chloride 104 mmol/L (98-107); Creatinine Clr Calc Pharmacy 23.8 ml/min; Globulin 3.1 gm/dl (2.5-4.0); Glucose 81 mg/dl (70-99(Fasting)); Sodium 136 mmol/L (136-145); Total Protein 7.1 gm/dl (6.0-8.3)
[2024-09-14 15:24] LABS: Troponin I High Sensitivity < 2.3 pg/ml (0-14)
[2024-09-14 15:37] LABS: INR 0.9 (0.9-1.1); Partial Thromboplastin Ratio 0.7
[2024-09-14 15:49] LABS: Partial Thromboplastin Time < 20 Seconds (21-31)
--- NOTE | 2024-09-14 15:59 | XRay Report ---
XR chest 1V not portable CLINICAL HISTORY: Chest pain, nonspecific COMPARISON STUDY: None FINDINGS: Heart size and pulmonary vasculature are normal. No effusion, consolidation, or pneumothora x. IMPRESSION: No acute findings. ACT 112: Negative or not required by law. Electronically signed by: Fareed Garza M.D. 09/14/2024 3:57 PM
--- NOTE | 2024-09-14 15:59 | XRay Report ---
XR shoulder LT min 2V routine CLINICAL HISTORY: pain COMPARISON: None FINDINGS: There are mild degenerative changes. No fracture or dislocation. IMPRESSION: No acute findings. ACT 112: Negative or not required by law. Electronically signed by: Fareed Garza M.D. 09/14/2024 3:58 PM
[2024-09-14 17:54] LABS: Basophils # (auto) 0.03 K/uL (0.00-0.20); Basophils % (auto) 0.4 %; Eosinophils # (auto) 0.18 K/uL (0.00-0.50); Eosinophils % (auto) 2.3 %; Hematocrit (blood only) 32.1 % (37.0-47.0); Immature Granulocytes # (auto) 0.03 K/uL (0.01-0.20); Immature Granulocytes % (auto) 0.4 %; Lymphocytes # (auto) 2.36 K/uL (1.20-3.40); Lymphocytes % (auto) 29.6 %; Mean Corpuscular Hemoglobin 32.3 pg (25.0-34.0); Mean Corpuscular Hgb Conc 34.3 g/dL (32.0-36.0); Mean Corpuscular Volume 94.1 fL (80.0-100.0); Mean Platelet Volume 9.8 fL (9.4-12.4); Monocytes # (auto) 0.73 K/uL (0.11-0.59); Monocytes % (auto) 9.1 %; Neutrophils # (auto) 4.65 K/uL (1.40-6.50); Neutrophils % (auto) 58.2 %; Platelet Count 179 K/uL (130-400); RDW Coefficient of Variation 11.9 % (11.5-14.5); RDW Standard Deviation 40.3 fL (36.4-46.3); Red Blood Count 3.41 M/uL (4.20-5.40); White Blood Count 7.98 K/ul (4.8-10.8)
--- NOTE | 2024-09-14 18:57 | Emergency Department Note ---
Impression & Plan Acute pain of left shoulder ED Provider Note NAME: MARCO RODRIGUEZ AGE: 69 SEX: Female INFORMANT: Patient ED PROVIDER(S): Isaac Hartmann MD CHIEF COMPLAINT: Shoulder pain PLAN: Disposition: Admitted Outpatient prescription management: none Referral: None MEDICAL DECISION MAKING: Patient presented because of shoulder pain during a time of high volume and high acuity. By history it sounded musculoskeletal. She had negative x-ray imaging. Her blood work and ECG were unremarkable. On further questioning the patient did note having an episode of facial droop this afternoon. It resolved. Given her history of diabetes and hypertension there was concerns for possible TIA. Her NIH was 0 on my evaluation. Patient is not a TNK candidate. Unfortunately she has significant CKD. CT imaging of the head was ordered. This was negative. MR imaging and MRA imaging of the head was ordered. Contrast enhanced MR imaging of the neck was not ordered due to the patient's low GFR. Patient was given a dose of aspirin. Discussed the need for admission and further workup in light of the strokelike symptoms. Suspect TIA like event. Consultation was made with Dr. Flynn of the [facility] service. Patient was evaluated in the ER for further management. 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 Vital Signs: reviewed and remarkable for no significant abnormalities Additional History obtained from: none Chronic Medical/Social Conditions affecting care: Diabetes, CKD Prior/ Outside/ External records reviewed: none Differential Diagnosis: Fracture, subluxation, dislocation, contusion, ligamentous injury, neurovascular, compartment syndrome, CVA, TIA, ICH, electrolyte abnormality, cardiac sources, as well as other pathologies. Diagnostics, independently interpreted by me: ECG: Twelve-lead ECG result normal sinus rhythm at [address] elevation or depression. No PACs or PVCs. Cardiac Monitoring: Cardiac monitoring ordered by me: The patient was placed on continuous cardiac monitoring and observed. It revealed a normal sinus rhythm at 68 beats per minute without ectopy or evidence of dysrhythmia. Medical decision rules: none Imaging studies: X-ray imaging of the left shoulder and chest x-ray are negative for acute process. No fracture or dislocation. Head CT: A noncontrast CT scan of the head was performed and was negative for tumor, fracture, intracranial hemorrhage, or other acute pathology. HPI: 69 year old Female arrives for evaluation of left shoulder pain. This started around 1100 today while doing free style swimming and is improved. Over last several weeks she notes similar pain with back stroke. Today tried different activity and pain returned. Radiated down the left arm and neck pain. The patient also notes the following associated symptoms, transient headache. The patient has taken no medication relieving factors. Current pain is rated as 1/10. Pain was a 2/10. Pt denies LOC, headache, fevers, chills, diaphoresis, visual changes, chest pain, breathing difficulties, nausea, vomiting, abdominal pain, back pain, melena, hematochezia, urinary symptoms, numbness, weakness, lymphadenopathy, rash, or other complaints. PAST MEDICAL HISTORY: See Below, DM PAST SURGICAL HISTORY: See Below, SOCIAL HISTORY: See Below, Non-smoker HOME MEDICATIONS: See Below ALLERGIES: See Below VITALS: See Below PHYSICAL EXAMINATION: GENERAL: Awake, alert, well-appearing, in no distress HENT: Normocephalic, atraumatic. Oropharynx unremarkable. EYES: Normal conjunctiva. Sclera non-icteric. NECK: Inspection normal. Non-tender. Supple. No nuchal rigidity. FROM. No masses. RESPIRATORY: Clear to auscultation. No wheezes. No rales. Normal respiratory effort. CARDIAC: Normal rate. Normal rhythm. No murmurs. No rubs. Extremities warm and well perfused. Pulses equal. No JVD. GI: Soft, non-distended. No tenderness to palpation. No rebound or guarding. No masses. RECTAL: Deferred. MUSCULOSKELETAL: Atraumatic. Left shoulder exam reveals Chest examination reveals no tenderness. The back is symmetrical on inspection without obvious abnormality. There is no CVA tenderness to palpation. No joint edema. LOWER EXTREMITIES: Calves are equal size bilaterally and non-tender. No edema. No discoloration. NEURO: Normal sensorium. No sensory or motor deficits noted. SKIN: No rash or jaundice noted. PROCEDURES: none CRITICAL CARE: none OBSERVATION NOTE: none Past Med/Surg History Problem List (Updated 09/14/24 @ 18:57 by Isaac Hartmann MD) Acute pain of left shoulder (Acute) Vitamin D deficiency Biceps tendonitis of both shoulders Pain of both shoulder joints Back pain Osteopenia (~10/2020) Hypertension (Chronic) Diabetes mellitus, type II (Chronic) Chronic kidney disease, stage III (moderate) Followed by Nephrology Hyperlipidemia (Chronic) Gout Bipolar disorder (Chronic) Long standing. Followed by Dr. Kenney in Psychiatry. Medical History Lumbar degenerative disc disease Cervicalgia Nontoxic multinodular goiter Vitamin D deficiency History of colon polyps Osteoarthritis Diabetes mellitus, type 2 Anemia Hypertension Surgical History History of left cataract extraction History of colonoscopy History of tooth extraction S/P thyroid biopsy History of eyelid surgery Family History Father Colon cancer Diabetes Cardiac disorder Hypertension Mother CKD (chronic kidney disease) Depression Spinal stenosis Macular degeneration Hypertension Osteoarthritis Sister Diabetes CKD (chronic kidney disease) Denies family history of Ovarian cancer Prostate cancer Heart disease Myocardial infarction Breast cancer Lung cancer Colorectal cancer Social History Smoking Status: Never smoker Second Hand Exposure: Yes (occassional exposure ); Do You Dip or Chew Tobacco: No; Hx Alcohol Use: Yes Alcohol type: wine and hard liquor Alcohol Intake Frequency Comment: rarely;social gatherings Hx Substance Use: No Preferred Language: Angolan Communication Ability: Effective Visual Impairment: Limited Hearing Ability: Normal Breast Worker Required: No Beliefs That Will Affect Care: None marital status: Current Living Situation: Spouse current occupational status: retired How many Children do You have: 1 Feels Safe at Home: No Is there a partner from a previous relationship who is making you feel unsafe now?: No Childhood Exposure to Second-Hand Smoke: Yes (father smoked in home ) caffeine: No Dental Care, Regularly: Yes Physical Activity Frequency: 5-6 Times per Week Physical Activity Frequency Comment: Swimming Seatbelt Use: always Sunscreen Use: Yes Assistive Devices: Glasses Allergies Allergies Allergy/AdvReac Type Severity Reaction Status Date / Time simvastatin AdvReac Mild myalgias Verified 03/19/24 08:40 Home Meds Home Medications Medication Instructions Recorded Confirmed coQ10 (ubiquinol) 100 mg capsule 100 mg PO BID 06/26/18 09/14/24 divalproex 500 mg tablet,delayed 500 mg PO HS 06/26/18 09/14/24 release (Depakote) lactobacillus combination no.4 3 1 cap PO QAM 06/26/18 09/14/24 billion cell capsule (Probiotic) vitamin B complex 1 tab PO DAILY 08/16/20 09/14/24 ascorbic acid (vitamin C) 500 mg 500 mg PO QAM 02/20/21 09/14/24 tablet (Vitamin C) propylene glycol 0.6 % eye drops 1 drp ophthalmic (eye) BID 02/20/21 09/14/24 (Systane Balance) alprazolam 0.25 mg tablet 0.5 mg PO HS sleep 09/03/22 09/14/24 calcium carbonate 600 mg PO DAILY 09/03/22 03/19/24 olanzapine 10 mg tablet 10 mg PO HS 10/12/22 09/14/24 olanzapine 2.5 mg tablet 2.5 mg PO HS 03/06/23 09/14/24 divalproex 125 mg tablet,delayed 250 mg PO QPM 09/09/23 09/14/24 release (Depakote) atorvastatin 10 mg tablet 10 mg PO HS 09/14/24 09/14/24 Previous Rx's Medication Instructions Recorded blood sugar diagnostic #100 ea 10/23/21 cholecalciferol (vitamin D3) 25 25 mcg PO DAILY #30 caps 11/08/22 mcg (1,000 unit) capsule triamcinolone acetonide 0.1 % 1 applic topical BID PRN eczema 07/22/23 topical ointment #30 grams [facility] sugar [facility] 08/13/23 Ultra Test strips) lisinopril 5 mg tablet 5 mg PO QAM #90 tabs 08/13/23 valacyclovir 500 mg tablet 500 mg PO BID outbreak #10 tabs 11/12/23 lancets 33 gauge (One[facility] Delica #100 ea 11/13/23 Plus Lancet) acyclovir 5 % topical cream 1 applic topical 5XD PRN outbreak 05/21/24 (Zovirax) #5 grams allopurinol 100 mg tablet 50 mg (1/2 x 100 mg) PO DAILY #45 06/04/24 tabs Results & Data (ED) Vital Signs Vital Signs - 24 hr 09/14/24 13:25 09/14/24 17:10 09/14/24 17:46 Temperature 36.3 C L Temperature Source Temporal Artery Scan Pulse Rate 73 59 L Pulse Rate [Apical] 65 Pulse Rhythm Regular Pulse Strength Normal Respiratory Rate 20 20 Respiratory Effort / Characteristics Non-Labored Spontaneous Respiratory Depth Normal Blood Pressure 117/78 Blood Pressure [Right Arm] 117/70 Blood Pressure Mean 91 Blood Pressure Mean [Right Arm] 85 Blood Pressure Position Sitting Blood Pressure Position [Right Arm] Sitting Pulse Oximetry 100 100 Oxygen Delivery Method Room Air Room Air Sepsis Recent Fever Within 48 Hours No Sepsis New/Unexplained Change in Mental Status N/A Sepsis Action Taken by Nursing No Action Required Laboratory Data 09/14/24 17:33 09/14/24 14:45 Lab Results 09/14/24 09/14/24 Range/Units 14:45 17:33 WBC Cancelled 7.98 RBC Cancelled 3.41 L Hgb Cancelled 11.0 L Hct Cancelled 32.1 L MCV Cancelled 94.1 MCH Cancelled 32.3 MCHC Cancelled 34.3 RDW Std Deviation Cancelled 40.3 RDW Coeff of [place] Cancelled 11.9 Plt Count Cancelled 179 MPV Cancelled 9.8 Immature Gran % (Auto) Cancelled 0.4 Neut % (Auto) Cancelled 58.2 Lymph % (Auto) Cancelled 29.6 [place] % (Auto) Cancelled 9.1 Eos % (Auto) Cancelled 2.3 Baso % (Auto) Cancelled 0.4 Neut # (Auto) Cancelled 4.65 Lymph # (Auto) Cancelled 2.36 [place] # (Auto) Cancelled 0.73 H Eos # (Auto) Cancelled 0.18 Baso # (Auto) Cancelled 0.03 Immature Gran # (Auto) Cancelled 0.03 Absolute Nucleated RBC Cancelled Nucleated RBC % (auto) Cancelled Neutrophils % (Manual) Cancelled Band Neutrophils % Cancelled Lymphocytes % (Manual) Cancelled Prolymphocyte % Cancelled Reactive Lymphs % (Man) Cancelled Monocytes % (Manual) Cancelled Eosinophils % (Manual) Cancelled Basophils % (Manual) Cancelled Metamyelocytes % (Man) Cancelled Myelocytes % (Man) Cancelled Promyelocytes % (Man) Cancelled Blast Cells % (Manual) Cancelled Plasma Cell % (Manual) Cancelled Other Cells % Cancelled Nucleated RBC % Cancelled Neutrophils # (Manual) Cancelled Band Neutrophils # Cancelled Total Absolute Neuts Cancelled Lymphocytes # (Manual) Cancelled Prolymphocyte # Cancelled Reactive Lymphs # Cancelled Total Abs Lymphocytes Cancelled Monocytes # (Manual) Cancelled Eosinophils # (Manual) Cancelled Basophils # (Manual) Cancelled Metamyelocytes # (Man) Cancelled Myelocytes # (Manual) Cancelled Promyelocytes # (Man) Cancelled Blast Cells # (Man) Cancelled Plasma Cell # (Manual) Cancelled Other Cells # Cancelled Nucleated RBCs # (Man) Cancelled Hypersegmented Neuts Cancelled Hyposegmented Neuts Cancelled Hypogranular Neuts Cancelled Large Granular Lymphs Cancelled # Lrg Granular Lymphs Cancelled Hairy Cells Cancelled Smudge Cells Cancelled Toxic Granulation Cancelled Toxic Vacuolation Cancelled Dohle Bodies Cancelled Romulo Rods Cancelled Platelet Estimate Cancelled Hypogranular Platelets Cancelled Giant Platelets Cancelled Platelet Satelliting Cancelled RBC Morphology Cancelled Polychromasia Cancelled Hypochromasia Cancelled Poikilocytosis Cancelled Basophilic Stippling Cancelled Anisocytosis Cancelled Microcytosis Cancelled Macrocytosis Cancelled Spherocytes Cancelled Pappenheimer Bodies Cancelled Sickle Cells Cancelled Target Cells Cancelled Tear Drop Cells Cancelled Ovalocytes Cancelled Stomatocytes Cancelled [place] Bodies Cancelled Echinocytes Cancelled Acanthocytes (Spur) Cancelled Rouleaux Cancelled RBC Agglutinates Cancelled Schistocytes Cancelled Sezary Cell Cancelled PT 10.0 (9.0-12.0) Seconds INR 0.9 (0.9-1.1) APTT < 20 L (21-31) Seconds PTT Ratio 0.7 Sodium 136 (136-145) mmol/L Potassium 5.0 (3.5-5.1) mmol/L Chloride 104 (98-107) mmol/L Carbon Dioxide 26 (21-32) mmol/L Anion Gap 6 (3-11) BUN 40 H (6-23) mg/dl Creatinine 1.87 H (0.6-1.2) mg/dl Est Cr Clr Drug Dosing 23.8 ml/min eGFR 28.95 BUN/Creatinine Ratio 21.4 H (10-20) Glucose 81 (70-99(Fasting)) mg/dl Calcium 9.6 (8.6-10.3) mg/dl Phosphorus 3.9 (2.5-4.9) mg/dl Magnesium 2.8 H (1.7-2.4) mg/dl Total Bilirubin 0.4 (0.2-1.0) mg/dl AST 29 (13-39) U/L ALT 17 (7-52) U/L Alkaline Phosphatase 63 (34-104) U/L Troponin I High Sens < 2.3 (0-14) pg/ml Total Protein 7.1 (6.0-8.3) gm/dl Albumin 4.0 (3.4-5.0) gm/dl Globulin 3.1 (2.5-4.0) gm/dl Albumin/Globulin Ratio 1.3 (0.9-2) Blood Parasites ID Cancelled Administered Medications Discontinued Medications Alprazolam (Alprazolam 0.5 Mg Tablet) 0.5 mg PO NOW STA Stop: 09/14/24 21:30 Last Admin: 09/14/24 22:02 Dose: 0.5 mg Documented By: QGV Aspirin (Aspirin Chew 324 Mg) 324 mg PO NOW STA Stop: 09/14/24 20:21 Last Admin: 09/14/24 21:13 Dose: 324 mg Documented By: QGV Atorvastatin Calcium (Atorvastatin 10 Mg Tab) 10 mg PO NOW ONE Stop: 09/14/24 21:30 Last Admin: 09/14/24 22:03 Dose: 10 mg Documented By: QGV Divalproex Sodium (Divalproex Delay Release 250 Mg Tabec) 250 mg PO NOW ONE Stop: 09/14/24 21:30 Last Admin: 09/14/24 22:03 Dose: 250 mg Documented By: QGV Divalproex Sodium (Divalproex Delay Release 500 Mg Tab) 500 mg PO NOW ONE Stop: 09/14/24 21:30 Last Admin: 09/14/24 22:03 Dose: 500 mg Documented By: QGV Olanzapine (Olanzapine 2.5 Mg Tab) 12.5 mg PO NOW STA Stop: 09/14/24 21:30 Last Admin: 09/14/24 22:03 Dose: 12.5 mg Documented By: QGV Imaging Data Radiologist's Impression: Chest X-Ray 09/14/24 13:30 XR chest 1V not portable CLINICAL HISTORY: Chest pain, nonspecific COMPARISON STUDY: None FINDINGS: Heart size and pulmonary vasculature are normal. No effusion, consolidation, or pneumothorax. IMPRESSION: No acute findings. ACT 112: Negative or not required by law. Electronically signed by: Fareed Garza M.D. 09/14/2024 3:57 PM Shoulder X-Ray 09/14/24 15:00 XR shoulder LT min 2V routine CLINICAL HISTORY: pain COMPARISON: None FINDINGS: There are mild degenerative changes. No fracture or dislocation. IMPRESSION: No acute findings. ACT 112: Negative or not required by law. Electronically signed by: Fareed Garza M.D. 09/14/2024 3:[address] 09/14/24 19:01 CT head without contrast History: Pain Comparison: None Technique: Using multidetector thin collimation helical acquisition technique, axial, coronal and sagittal CT images from the skull base to the vertex were obtained without intravenous contrast. Dose reduction techniques were achieved by using automatic exposure control and/or adjustment of mA and/or kV according to patient size and/or use of iterative reconstruction technique. Findings: No intracranial hemorrhage, mass-effect, or midline shift. The ventricles are proportionate to the cerebral sulci. The deleon to white matter differentiation of the cerebral hemispheres is preserved. The basal cisterns are patent. The visualized paranasal sinuses are clear. Mastoid air cells are clear. Impression: No acute intracranial pathology. Electronically signed by Oliver Bautista 09-14-2024 8:07 PM Brain MRI 09/14/24 19:03 Exam(s): MRI HEAD Without Contrast EXAM: MR Head Without Intravenous Contrast CLINICAL HISTORY: left facial droop. TECHNIQUE: Magnetic resonance images of the head/brain without intravenous contrast in multiple planes. COMPARISON: CT head without contrast performed at 1939 hrs. FINDINGS: Brain: Diffusion-weighted imaging is negative for acute or subacute infarct. There are a few punctate areas of abnormal T2 signal in the deep cerebral white matter most consistent with mild small vessel ischemic/degenerative changes. The cerebral and cerebellar sulci are mildly prominent consistent with mild brain atrophy. No hemorrhage. No mass-effect. Ventricles: Unremarkable. No ventriculomegaly. Bones/joints: Unremarkable. No acute fracture. Sinuses: Unremarkable as visualized. No acute sinusitis. Mastoid air cells: Unremarkable as visualized. No mastoid effusion. Orbits: Unremarkable as visualized. IMPRESSION: No evidence of acute or subacute infarct. Electronically signed by: Abdoulaye Ng MD 09/14/24 23:47 PM Head MRA 09/14/24 19:03 Exam(s): MRA HEAD Without Contrast EXAM: MR Angiography Head Without Intravenous Contrast CLINICAL HISTORY: left facial droop. TECHNIQUE: Magnetic resonance angiography images of the head without intravenous contrast. COMPARISON: No relevant prior studies available. FINDINGS: Right internal carotid artery: No acute findings. Intracranial segment is patent with no significant stenosis. No aneurysm. Right anterior cerebral artery: Unremarkable. No occlusion or significant stenosis. No aneurysm. Right middle cerebral artery: Unremarkable. No occlusion or significant stenosis. No aneurysm. Right posterior cerebral artery: Unremarkable. No occlusion or significant stenosis. No aneurysm. Right vertebral artery: Unremarkable as visualized. Left internal carotid artery: No acute findings. Intracranial segment is patent with no significant stenosis. No aneurysm. Left anterior cerebral artery: Unremarkable. No occlusion or significant stenosis. No aneurysm. Left middle cerebral artery: Unremarkable. No occlusion or significant stenosis. No aneurysm. Left posterior cerebral artery: Unremarkable. No occlusion or significant stenosis. No aneurysm. Left vertebral artery: Unremarkable as visualized. Basilar artery: Unremarkable. No occlusion or significant stenosis. No aneurysm. IMPRESSION: Negative intracranial MRA examination. Electronically signed by: Abdoulaye Ng MD 09/14/24 23:48 PM Discharge Plan Visit Data Chief Complaint: Shoulder Pain Stated Complaint: PN IN LT SHOULDER, RADIATING LT SIDE OF NECK ED Provider: Isaac Hartmann Discharge Problem: Acute pain of left shoulder Discharge Instructions Interventions: ED Discharge Assessment Last Done: 09/14/24 23:31
--- NOTE | 2024-09-14 20:07 | CT Scan Report ---
CT head without contrast History: Pain Comparison: None Technique: Using multidetector thin collimation helical acquisition technique, axial, coronal and sagittal CT images from the skull base to the vertex were obtained without intravenous contrast. Dose reduction techniques were achieved by using automatic exposure control and/or adjustment of mA and/or kV according to patient size and/or use of iterative reconstruction technique. Findings: No intracranial hemorrhage, mass-effect, or midline shift. The ventricles are proportionate to the cerebral sulci. The deleon to white matter differentiation of the cerebral hemispheres is preserved. The basal cisterns are patent. The visualized paranasal sinuses are clear. Mastoid air cells are clear. Impression: No acute intracranial pathology. Electronically signed by Oliver Bautista 09-14-2024 8:07 PM
--- NOTE | 2024-09-14 21:06 | History & Physical Report ---
Date of Service September 14, 2024 Assessment & Plan (1) TIA (transient ischemic attack): Plan: 69yo with history of HTN, DM ,CKD presenting initially with left shoulder pain while swimming but developed left sided facial numbness and droop whilst in the ER. Symptoms have since resolved. -Observation to medical with telemetry -NIHSS and Neuro checks per protocol -Check MRI brain and MRA head -Check 2D echo with bubble study -Check HgbA1C and Lipid panel -ASA 81mg po daily + Plavix 75 mg po daily for now -Continue Atorvastatin 10mg po qHS - ideally increase to moderate or high intensity, however, patient reports developing significant muscle cramps on statins (2) Acute pain of left shoulder: Plan: Likely impingement - pain with activity, specifically overhead activities/backstroke and freestyle swimming -PT/OT evaluation (3) Hypertension: Plan: Chronic. Well controlled -Continue Lisinopril 5mg po daily (4) Diabetes mellitus, type II: Plan: Diet controlled -CC diet as tolerated (5) Chronic kidney disease, stage III (moderate): Plan: Chronic. Slightly increased BUN and Cr from baseline -Renal dosing where needed -Avoid nephrotoxic agents -BMP in AM (6) Hyperlipidemia: Plan: Chronic -Atorvastatin 10mg po daily - would ideally increase but patient reports she develops significant cramping History of Present Illness Chief Complaint: left sided facial droop Primary Care Provider: Michelle Wynne Brandie Natalio is a 69yo female with history of DM, HTN, Gout presenting with left shoulder pain. Patient swims at the [facility] 3 times weekly. Over the last several weeks she has developed pain in her left anterior shoulder specifically with performing backstroke. She was swimming today and was doing freestyle and again developed the shoulder pain. She called her PCP and was instructed to come to the ER for concern for possible chest pain. While in the ER patient developed left sided facial numbness and droop as well as numbness/tingling of her LUE. Symptoms resolved after several minutes. Patient still with some dull discomfort in her left shoulder but no additional complaints. ER Course: ASA 324mg Allergies Allergy/AdvReac Type Severity Reaction Status Date / Time simvastatin AdvReac Mild myalgias Verified 03/19/24 08:40 Home Medications Medication Instructions Recorded Confirmed Type coQ10 (ubiquinol) 100 mg capsule 100 mg PO BID 06/26/18 09/14/24 History divalproex 500 mg tablet,delayed 500 mg PO HS 06/26/18 09/14/24 History release (Depakote) lactobacillus combination no.4 3 1 cap PO QAM 06/26/18 09/14/24 History billion cell capsule (Probiotic) vitamin B complex 1 tab PO DAILY 08/16/20 09/14/24 History ascorbic acid (vitamin C) 500 mg 500 mg PO QAM 02/20/21 09/14/24 History tablet (Vitamin C) propylene glycol 0.6 % eye drops 1 drp ophthalmic (eye) BID 02/20/21 09/14/24 History (Systane Balance) blood sugar diagnostic #100 ea 10/23/21 09/15/24 Rx alprazolam 0.25 mg tablet 0.5 mg PO HS sleep 09/03/22 09/14/24 History calcium carbonate 600 mg PO DAILY 09/03/22 09/15/24 History olanzapine 10 mg tablet 10 mg PO HS 10/12/22 09/14/24 History cholecalciferol (vitamin D3) 25 25 mcg PO DAILY #30 caps 11/08/22 09/15/24 Rx mcg (1,000 unit) capsule olanzapine 2.5 mg tablet 2.5 mg PO HS 03/06/23 09/14/24 History triamcinolone acetonide 0.1 % 1 applic topical BID PRN eczema 07/22/23 09/14/24 Rx topical ointment #30 grams blood sugar diagnostic (OneTouch #100 ea 08/13/23 09/15/24 Rx Ultra Test strips) lisinopril 5 mg tablet 5 mg PO QAM #90 tabs 08/13/23 09/14/24 Rx divalproex 125 mg tablet,delayed 250 mg PO QPM 09/09/23 09/14/24 History release (Depakote) valacyclovir 500 mg tablet 500 mg PO BID outbreak #10 tabs 11/12/23 09/14/24 Rx lancets 33 gauge (OneTouch Delica #100 ea 11/13/23 09/15/24 Rx Plus Lancet) acyclovir 5 % topical cream 1 applic topical 5XD PRN outbreak 05/21/24 09/14/24 Rx (Zovirax) #5 grams allopurinol 100 mg tablet 50 mg (1/2 x 100 mg) PO DAILY #45 06/04/24 09/14/24 Rx tabs atorvastatin 10 mg tablet 10 mg PO HS 09/14/24 09/14/24 History Past Med/Surg History Problem List (Updated 09/15/24 @ 03:04 by Marisel Flynn DO) TIA (transient ischemic attack) Acute pain of left shoulder (Acute) Vitamin D deficiency Biceps tendonitis of both shoulders Pain of both shoulder joints Back pain Osteopenia (~10/2020) Hypertension (Chronic) Diabetes mellitus, type II (Chronic) Chronic kidney disease, stage III (moderate) Followed by Nephrology Hyperlipidemia (Chronic) Gout Bipolar disorder (Chronic) Long standing. Followed by Dr. Kenney in Psychiatry. Medical History Lumbar degenerative disc disease Cervicalgia Nontoxic multinodular goiter Vitamin D deficiency History of colon polyps Osteoarthritis Diabetes mellitus, type 2 diet and exercise controlled, no meds Anemia Hypertension Surgical History History of left cataract extraction 07/22/2018. 2mg versed, 100mcg fentanyl. no issues. History of colonoscopy 05/2021 repeat 5 yrs History of tooth extraction wisdom teeth S/P thyroid biopsy benign History of eyelid surgery chalazion removed Family History Father , 78 Colon cancer Diabetes Cardiac disorder Hypertension Mother CKD (chronic kidney disease) Depression Spinal stenosis Macular degeneration Hypertension Osteoarthritis Sister Diabetes CKD (chronic kidney disease) Denies family history of Ovarian cancer Prostate cancer Heart disease Myocardial infarction Breast cancer Lung cancer Colorectal cancer Social History Smoking Status: Never smoker Second Hand Exposure: Yes (occassional exposure ); Do You Dip or Chew Tobacco: No; Hx Alcohol Use: Yes Alcohol type: wine and hard liquor Alcohol Intake Frequency Comment: rarely;social gatherings Hx Substance Use: No Preferred Language: Citizen Of [place] Communication Ability: Effective Visual Impairment: Limited Hearing Ability: Normal Ship Purser Required: No Beliefs That Will Affect Care: None marital status: Current Living Situation: Spouse current occupational status: retired How many Children do You have: 1 Feels Safe at Home: No Is there a partner from a previous relationship who is making you feel unsafe now?: No Childhood Exposure to Second-Hand Smoke: Yes (father smoked in home ) caffeine: No Dental Care, Regularly: Yes Physical Activity Frequency: 5-6 Times per Week Physical Activity Frequency Comment: Swimming Seatbelt Use: always Sunscreen Use: Yes Assistive Devices: Glasses Review of Systems Review of Systems: All systems reviewed & are unremarkable except as noted in HPI & below Physical Exam Physical Exam: General: patient resting comfortably, NAD, non-toxic in appearance, AA&O x 4 Skin: warm, dry, intact, no rashes or lesions HEENT: NC/AT, PERRL, EOMI, anicteric sclera, conjunctiva without injection, external ear normal to inspection and nontender, nares patent, moist mucus membranes, dentition intact, no oropharyngeal lesions, neck supple, trachea midline, no LAD, no thyromegaly, no JVD Heart: +S1/S2, regular, no m/r/g Lungs: equal air entry bilaterally, no rales/rhonchi/wheezes Abd: +BS, soft, NT/ND, no masses/organomegaly/ascites Ext: warm, 2+ pulses in UE/LE bilaterally, no clubbing/cyanosis or edema Neuro: nonfocal, patient AA&O x 4, speech intact, no facial droop, moving all extremities on command with equal strength 5/5 Results & Data Results & Data Vital Signs (Past 12 Hours) Vital Signs Temp Pulse Pulse Resp BP BP Pulse Ox 09/14/24 17:46 59 L 09/14/24 17:10 65 20 117/70 100 09/14/24 13:25 36.3 C L 73 20 117/78 100 O2 Del Method 09/14/24 17:46 09/14/24 17:10 Room Air 09/14/24 13:25 Room Air Laboratory Results Laboratory Results WBC 7.98 K/ul (4.8-10.8) 09/14/24 17:33 RBC 3.41 M/uL (4.20-5.40) L 09/14/24 17:33 Hgb 11.0 g/dl (12.0-16.0) L 09/14/24 17:33 Hct 32.1 % (37.0-47.0) L 09/14/24 17:33 MCV 94.1 fL (80.0-100.0) 09/14/24 17:33 MCH 32.3 pg (25.0-34.0) 09/14/24 17: MCHC 34.3 g/dL (32.0-36.0) 09/14/24 17:33 RDW Std Deviation 40.3 fL (36.4-46.3) 09/14/24 17: RDW Coeff of [place] 11.9 % (11.5-14.5) 09/14/24 17:33 Plt Count 179 K/uL (130-400) 09/14/24 17: MPV 9.8 fL (9.4-12.4) 09/14/24 17:33 Immature Gran % (Auto) 0.4 % 09/14/24 17:33 Neut % (Auto) 58.2 % 09/14/24 17:33 Lymph % (Auto) 29.6 % 09/14/24 17:33 [place] % (Auto) 9.1 % 09/14/24 17:33 Eos % (Auto) 2.3 % 09/14/24 17:33 Baso % (Auto) 0.4 % 09/14/24 17:33 Neut # (Auto) 4.65 K/uL (1.40-6.50) 09/14/24 17:33 Lymph # (Auto) 2.36 K/uL (1.20-3.40) 09/14/24 17:33 [place] # (Auto) 0.73 K/uL (0.11-0.59) H 09/14/24 17:33 Eos # (Auto) 0.18 K/uL (0.00-0.50) 09/14/24 17:33 Baso # (Auto) 0.03 K/uL (0.00-0.20) 09/14/24 17:33 Immature Gran # (Auto) 0.03 K/uL (0.01-0.20) 09/14/24 17:33 Absolute Nucleated RBC Cancelled 09/14/24 14:45 Nucleated RBC % (auto) Cancelled 09/14/24 14:45 Neutrophils % (Manual) Cancelled 09/14/24 14:45 Band Neutrophils % Cancelled 09/14/24 14:45 Lymphocytes % (Manual) Cancelled 09/14/24 14:45 Prolymphocyte % Cancelled 09/14/24 14:45 Reactive Lymphs % (Man) Cancelled 09/14/24 14:45 Monocytes % (Manual) Cancelled 09/14/24 14:45 Eosinophils % (Manual) Cancelled 09/14/24 14:45 Basophils % (Manual) Cancelled 09/14/24 14:45 Metamyelocytes % (Man) Cancelled 09/14/24 14:45 Myelocytes % (Man) Cancelled 09/14/24 14:45 Promyelocytes % (Man) Cancelled 09/14/24 14:45 Blast Cells % (Manual) Cancelled 09/14/24 14:45 Plasma Cell % (Manual) Cancelled 09/14/24 14:45 Other Cells % Cancelled 09/14/24 14:45 Nucleated RBC % Cancelled 09/14/24 14:45 Neutrophils # (Manual) Cancelled 09/14/24 14:45 Band Neutrophils # Cancelled 09/14/24 14:45 Total Absolute Neuts Cancelled 09/14/24 14:45 Lymphocytes # (Manual) Cancelled 09/14/24 14:45 Prolymphocyte # Cancelled 09/14/24 14:45 Reactive Lymphs # Cancelled 09/14/24 14:45 Total Abs Lymphocytes Cancelled 09/14/24 14:45 Monocytes # (Manual) Cancelled 09/14/24 14:45 Eosinophils # (Manual) Cancelled 09/14/24 14:45 Basophils # (Manual) Cancelled 09/14/24 14:45 Metamyelocytes # (Man) Cancelled 09/14/24 14:45 Myelocytes # (Manual) Cancelled 09/14/24 14:45 Promyelocytes # (Man) Cancelled 09/14/24 14:45 Blast Cells # (Man) Cancelled 09/14/24 14:45 Plasma Cell # (Manual) Cancelled 09/14/24 14:45 Other Cells # Cancelled 09/14/24 14:45 Nucleated RBCs # (Man) Cancelled 09/14/24 14:45 Hypersegmented Neuts Cancelled 09/14/24 14:45 Hyposegmented Neuts Cancelled 09/14/24 14:45 Hypogranular Neuts Cancelled 09/14/24 14:45 Large Granular Lymphs Cancelled 09/14/24 14:45 # Lrg Granular Lymphs Cancelled 09/14/24 14:45 Hairy Cells Cancelled 09/14/24 14:45 Smudge Cells Cancelled 09/14/24 14:45 Toxic Granulation Cancelled 09/14/24 14:45 Toxic Vacuolation Cancelled 09/14/24 14:45 Dohle Bodies Cancelled 09/14/24 14:45 Romulo Rods Cancelled 09/14/24 14:45 Platelet Estimate Cancelled 09/14/24 14:45 Hypogranular Platelets Cancelled 09/14/24 14:45 Giant Platelets Cancelled 09/14/24 14:45 Platelet Satelliting Cancelled 09/14/24 14:45 RBC Morphology Cancelled 09/14/24 14:45 Polychromasia Cancelled 09/14/24 14:45 Hypochromasia Cancelled 09/14/24 14:45 Poikilocytosis Cancelled 09/14/24 14:45 Basophilic Stippling Cancelled 09/14/24 14:45 Anisocytosis Cancelled 09/14/24 14:45 Microcytosis Cancelled 09/14/24 14:45 Macrocytosis Cancelled 09/14/24 14:45 Spherocytes Cancelled 09/14/24 14:45 Pappenheimer Bodies Cancelled 09/14/24 14:45 Sickle Cells Cancelled 09/14/24 14:45 Target Cells Cancelled 09/14/24 14:45 Tear Drop Cells Cancelled 09/14/24 14:45 Ovalocytes Cancelled 09/14/24 14:45 Stomatocytes Cancelled 09/14/24 14:45 [place] Bodies Cancelled 09/14/24 14:45 Echinocytes Cancelled 09/14/24 14:45 Acanthocytes (Spur) Cancelled 09/14/24 14:45 Rouleaux Cancelled 09/14/24 14:45 RBC Agglutinates Cancelled 09/14/24 14:45 Schistocytes Cancelled 09/14/24 14:45 Sezary Cell Cancelled 09/14/24 14:45 PT 10.0 Seconds (9.0-12.0) 09/14/24 14:45 INR 0.9 (0.9-1.1) 09/14/24 14:45 APTT < 20 Seconds (21-31) L 09/14/24 14:45 PTT Ratio 0.7 09/14/24 14:45 Sodium 136 mmol/L (136-145) 09/14/24 14:45 Potassium 5.0 mmol/L (3.5-5.1) 09/14/24 14:45 Chloride 104 mmol/L (98-107) 09/14/24 14:45 Carbon Dioxide 26 mmol/L (21-32) 09/14/24 14:45 Anion Gap 6 (3-11) 09/14/24 14:45 BUN 40 mg/dl (6-23) H 09/14/24 14:45 Creatinine 1.87 mg/dl (0.6-1.2) H 09/14/24 14:45 Est Cr Clr Drug Dosing 23.8 ml/min 09/14/24 14:45 eGFR 28.95 09/14/24 14:45 BUN/Creatinine Ratio 21.4 (10-20) H 09/14/24 14:45 Glucose 81 mg/dl (70-99(Fasting)) 09/14/24 14:45 Calcium 9.6 mg/dl (8.6-10.3) 09/14/24 14:45 Phosphorus 3.9 mg/dl (2.5-4.9) 09/14/24 14:45 Magnesium 2.8 mg/dl (1.7-2.4) H 09/14/24 14:45 Total Bilirubin 0.4 mg/dl (0.2-1.0) 09/14/24 14:45 AST 29 U/L (13-39) 09/14/24 14:45 ALT 17 U/L (7-52) 09/14/24 14:45 Alkaline Phosphatase 63 U/L (34-104) 09/14/24 14:45 Troponin I High Sens < 2.3 pg/ml (0-14) 09/14/24 14:45 Total Protein 7.1 gm/dl (6.0-8.3) 09/14/24 14:45 Albumin 4.0 gm/dl (3.4-5.0) 09/14/24 14:45 Globulin 3.1 gm/dl (2.5-4.0) 09/14/24 14:45 Albumin/Globulin Ratio 1.3 (0.9-2) 09/14/24 14:45 Blood Parasites ID Cancelled 09/14/24 14:45 Impressions Chest X-Ray 09/14/24 13:30 XR chest 1V not portable CLINICAL HISTORY: Chest pain, nonspecific COMPARISON STUDY: None FINDINGS: Heart size and pulmonary vasculature are normal. No effusion, consolidation, or pneumothorax. IMPRESSION: No acute findings. ACT 112: Negative or not required by law. Electronically signed by: Fareed Garza M.D. 09/14/2024 3:57 PM Shoulder X-Ray 09/14/24 15:00 XR shoulder LT min 2V routine CLINICAL HISTORY: pain COMPARISON: None FINDINGS: There are mild degenerative changes. No fracture or dislocation. IMPRESSION: No acute findings. ACT 112: Negative or not required by law. Electronically signed by: Fareed Garza M.D. 09/14/2024 3:[address] 09/14/24 19:01 CT head without contrast History: Pain Comparison: None Technique: Using multidetector thin collimation helical acquisition technique, axial, coronal and sagittal CT images from the skull base to the vertex were obtained without intravenous contrast. Dose reduction techniques were achieved by using automatic exposure control and/or adjustment of mA and/or kV according to patient size and/or use of iterative reconstruction technique. Findings: No intracranial hemorrhage, mass-effect, or midline shift. The ventricles are proportionate to the cerebral sulci. The deleon to white matter differentiation of the cerebral hemispheres is preserved. The basal cisterns are patent. The visualized paranasal sinuses are clear. Mastoid air cells are clear. Impression: No acute intracranial pathology. Electronically signed by Oliver Bautista 09-14-2024 8:07 PM Brain MRI 09/14/24 19:03 Exam(s): MRI HEAD Without Contrast EXAM: MR Head Without Intravenous Contrast CLINICAL HISTORY: left facial droop. TECHNIQUE: Magnetic resonance images of the head/brain without intravenous contrast in multiple planes. COMPARISON: CT head without contrast performed at 1939 hrs. FINDINGS: Brain: Diffusion-weighted imaging is negative for acute or subacute infarct. There are a few punctate areas of abnormal T2 signal in the deep cerebral white matter most consistent with mild small vessel ischemic/degenerative changes. The cerebral and cerebellar sulci are mildly prominent consistent with mild brain atrophy. No hemorrhage. No mass-effect. Ventricles: Unremarkable. No ventriculomegaly. Bones/joints: Unremarkable. No acute fracture. Sinuses: Unremarkable as visualized. No acute sinusitis. Mastoid air cells: Unremarkable as visualized. No mastoid effusion. Orbits: Unremarkable as visualized. IMPRESSION: No evidence of acute or subacute infarct. Electronically signed by: Abdoulaye Ng MD 09/14/24 23:47 PM Head MRA 09/14/24 19:03 Exam(s): MRA HEAD Without Contrast EXAM: MR Angiography Head Without Intravenous Contrast CLINICAL HISTORY: left facial droop. TECHNIQUE: Magnetic resonance angiography images of the head without intravenous contrast. COMPARISON: No relevant prior studies available. FINDINGS: Right internal carotid artery: No acute findings. Intracranial segment is patent with no significant stenosis. No aneurysm. Right anterior cerebral artery: Unremarkable. No occlusion or significant stenosis. No aneurysm. Right middle cerebral artery: Unremarkable. No occlusion or significant stenosis. No aneurysm. Right posterior cerebral artery: Unremarkable. No occlusion or significant stenosis. No aneurysm. Right vertebral artery: Unremarkable as visualized. Left internal carotid artery: No acute findings. Intracranial segment is patent with no significant stenosis. No aneurysm. Left anterior cerebral artery: Unremarkable. No occlusion or significant stenosis. No aneurysm. Left middle cerebral artery: Unremarkable. No occlusion or significant stenosis. No aneurysm. Left posterior cerebral artery: Unremarkable. No occlusion or significant stenosis. No aneurysm. Left vertebral artery: Unremarkable as visualized. Basilar artery: Unremarkable. No occlusion or significant stenosis. No aneurysm. IMPRESSION: Negative intracranial MRA examination. Electronically signed by: Abdoulaye Ng MD 09/14/24 23:48 PM PG Care Time/CCT Total # of Minutes Spent Total Time Spent with Patient: Total time spent is greater than 50% in coordination of care (as documented) at patient's floor/unit and/or counseling patient: Coding Level of Care Code 18380 INT INP/OBS CARE 3/75MIN Diagnoses TIA (transient ischemic attack) G45.9 Acute pain of left shoulder M25.512 Hypertension I10 Diabetes mellitus, type II E11.9 Chronic kidney disease, stage III (moderate) N18.3 Hyperlipidemia E78.5
[2024-09-14] MEDS: ASPIRIN CHEW 324 MG PO STA (21:13)
[2024-09-14] MEDS: ALPRAZolam 0.5 MG TABLET PO STA (22:02)
[2024-09-14] MEDS: DIVALPROEX DELAY RELEASE 500 MG TAB PO ONE (22:03)
[2024-09-14] MEDS: DIVALPROEX DELAY RELEASE 250 MG TABEC PO ONE (22:03)
[2024-09-14] MEDS: OLANZAPINE 2.5 MG TAB PO STA (22:03)
[2024-09-14] MEDS: ATORVASTATIN 10 MG TAB PO ONE (22:03)
[2024-09-14] MEDS ORDERED: ONDANSETRON INJ 2 MG/ML 2 ML VIAL IV PRN (23:31)
[2024-09-14] MEDS ORDERED: ACETAMINOPHEN 325 MG TAB PO PRN (23:31)
[2024-09-14] MEDS ORDERED: DOCUSATE SODIUM 100 MG CAP PO PRN (23:31)
[2024-09-14] MEDS ORDERED: PHARMACIST DISCHARGE MED REC CONSULT PRN (23:31)
--- NOTE | 2024-09-14 23:48 | Magnetic Resonance Report ---
Exam(s): MRI HEAD Without Contrast EXAM: MR Head Without Intravenous Contrast CLINICAL HISTORY: left facial droop. TECHNIQUE: Magnetic resonance images of the head/brain without intravenous contrast in multiple planes. COMPARISON: CT head without contrast performed at 1939 hrs. FINDINGS: Brain: Diffusion-weighted imaging is negative for acute or subacute infarct. There are a few punctate areas of abnormal T2 signal in the deep cerebral white matter most consistent with mild small vessel ischemic/degenerative changes. The cerebral and cerebellar sulci are mildly prominent consistent with mild brain atrophy. No hemorrhage. No mass-effect. Ventricles: Unremarkable. No ventriculomegaly. Bones/joints: Unremarkable. No acute fracture. Sinuses: Unremarkable as visualized. No acute sinusitis. Mastoid air cells: Unremarkable as visualized. No mastoid effusion. Orbits: Unremarkable as visualized. IMPRESSION: No evidence of acute or subacute infarct. Electronically signed by: Abdoulaye Ng MD 09/14/24 23:47 PM
--- NOTE | 2024-09-14 23:49 | Magnetic Resonance Report ---
Exam(s): MRA HEAD Without Contrast EXAM: MR Angiography Head Without Intravenous Contrast CLINICAL HISTORY: left facial droop. TECHNIQUE: Magnetic resonance angiography images of the head without intravenous contrast. COMPARISON: No relevant prior studies available. FINDINGS: Right internal carotid artery: No acute findings. Intracranial segment is patent with no significant stenosis. No aneurysm. Right anterior cerebral artery: Unremarkable. No occlusion or significant stenosis. No aneurysm. Right middle cerebral artery: Unremarkable. No occlusion or significant stenosis. No aneurysm. Right posterior cerebral artery: Unremarkable. No occlusion or significant stenosis. No aneurysm. Right vertebral artery: Unremarkable as visualized. Left internal carotid artery: No acute findings. Intracranial segment is patent with no significant stenosis. No aneurysm. Left anterior cerebral artery: Unremarkable. No occlusion or significant stenosis. No aneurysm. Left middle cerebral artery: Unremarkable. No occlusion or significant stenosis. No aneurysm. Left posterior cerebral artery: Unremarkable. No occlusion or significant stenosis. No aneurysm. Left vertebral artery: Unremarkable as visualized. Basilar artery: Unremarkable. No occlusion or significant stenosis. No aneurysm. IMPRESSION: Negative intracranial MRA examination. Electronically signed by: Abdoulaye Ng MD 09/14/24 23:48 PM
[2024-09-15 00:03] LABS: Magnesium 2.8 mg/dl (1.7-2.4); Phosphorus 3.9 mg/dl (2.5-4.9)
[2024-09-15 06:04] LABS: Hemoglobin 11.1 g/dl (12.0-16.0); Mean Corpuscular Hemoglobin 32.1 pg (25.0-34.0); Mean Corpuscular Hgb Conc 33.6 g/dL (32.0-36.0); Mean Corpuscular Volume 95.4 fL (80.0-100.0); Platelet Count 203 K/uL (130-400); RDW Standard Deviation 41.1 fL (36.4-46.3); Red Blood Count 3.46 M/uL (4.20-5.40); White Blood Count 7.59 K/ul (4.8-10.8)
[2024-09-15 06:17] LABS: BUN Creatinine Ratio 21.4 (10-20); Calcium 9.1 mg/dl (8.6-10.3); Chol HDL Ratio 2.9 (0-5); Creatinine Clr Calc Pharmacy 22.2 ml/min; Potassium 4.9 mmol/L (3.5-5.1)
[2024-09-15 08:05] VITALS: RESP 18
[2024-09-15 08:39] LABS: Estimated Average Glucose 123 mg/dl; Hemoglobin A1C 5.9 % (4.5-5.6)
[2024-09-15] MEDS: allopurinoL 100 MG TAB PO SCH (08:40)
[2024-09-15] MEDS: CLOPIDOGREL BISULFATE 75 MG TAB PO SCH (08:41)
[2024-09-15] MEDS: lisinopril 5 MG TAB PO SCH (08:41)
[2024-09-15] MEDS: ASPIRIN 81 MG ECTAB PO SCH (08:41)
[2024-09-15 11:09] VITALS: BP 107/68; TEMP 97.5; O2SAT 98
[2024-09-15] MEDS ORDERED: STROKE PATIENT DISCHARGE STA (12:45)
--- NOTE | 2024-09-15 12:56 | Pharmacy Report ---
- Date of Service September 15, 2024 - Pharmacy CVA/TIA Medication Review Medications to Prevent Stroke handout has been added to the patients discharge packet. Antiplatelet(s) * Aspirin 81mg PO Daily + Plavix 75mg PO Daily Cholesterol * High intensity statin: Atorvastatin 10mg po qHS - ideally increase to moderate or high intensity, however, patient reports developing significant muscle cramps on statins DVT Prophylaxis * Pt discharging now Therapeutic Anticoagulation * No history of Afib/Aflutter noted Type 2 Diabetes * Patient does not have T2DM
[2024-09-15 13:06] VITALS: PULSE 67
--- NOTE | 2024-09-15 13:08 | Discharge Summary ---
Discharge Summary Date of Service September 15, 2024 Principal Dx & Hospital Course #1 = Principal Diagnosis (1) TIA (transient ischemic attack): 69yo with history of HTN, DM ,CKD presenting initially with left shoulder pain while swimming but developed left sided facial numbness and droop whilst in the ER. Symptoms have since resolved, and have not recurred. -Observation to medical with telemetry -NIHSS and Neuro checks per protocol -MRI brain without contrast (09/14/2024, 7:03pm) negative for acute bleed, mass, or midline shift. -MRA head without contrast (09/14/2024, 7:03pm) negative for stenosis or aneurysm. -TTE (09/15/2024, 7:00am): performed, not resulted. -HbA1c 5.9% (09/14/2024, 11:31pm). -Fasting lipid panel (09/15/2024, 5:32am): total cholesterol 165, LDL 68, HDL 57, triglyceride 201 (09/15/2024, 5:32am). -Patient received ASA 81mg po daily + Plavix 75 mg po daily while in [facility]. Patient will continue both hospital-started medications on hospital discharge home on 09/15/2024. To this end, patient's [id number] ([place], [place]) receive electronic prescriptions for: a. ASA 81mg PO daily, #30 tablets, no refills. b. Plavix 75mg PO daily, #30 tablets, no refills. -Patient received atorvastatin 10mg po qhs while in [facility]. - ideally increase to moderate or high intensity, however, patient reports developing significant muscle cramps on statins. Hence, patient will continue her home-scheduled atorvastatin 10mg po qhs on hospital discharge home on 09/15/2024. Patient will need to follow up with her PCP Ms. Michelle Wynne PA-C, within 7 days of hospital discharge, to discuss results of TTE (09/15/2024, 7:00am). (2) Acute pain of left shoulder: Likely impingement - pain with activity, specifically overhead activities/backstroke and freestyle swimming. RESOLVED spontaneously. Observe. (3) Hypertension: Chronic. Well-controlled on home-scheduled lisinopril 5mg PO daily while in [facility] with discharge BP 107/68 (09/15/2024, 11:08am). Patient will continue this medication on hospital discharge home on 09/15/2024. (4) Diabetes mellitus, type II: Diet-controlled (no pharmacologic intervention) while in [facility] and on hospital discharge home on 09/15/2024. (5) Chronic kidney disease, stage III (moderate): CKD stage III with baseline creatinine range, 1.87 - 2.25 (05/20/2017 - 09/10/2024). Etiology of CKD is most likely due DM2 and HTN. cf., admission creatinine 1.87 (09/14/2024, 2:45pm). cf., discharge creatinine 2.01 (09/15/2024, 5:32am). (6) Hyperlipidemia: -Patient received atorvastatin 10mg po qhs while in [facility]. - ideally increase to moderate or high intensity, however, patient reports developing significant muscle cramps on statins. Hence, patient will continue her home-scheduled atorvastatin 10mg po qhs on hospital discharge home on 09/15/2024. Of note, patient reports she develops significant cramping with higher doses of atorvastatin, and hence, patient did not receive higher doses of atorvastatin while in [facility]. Discharge time, 35 minutes. Of this time period, 18 minutes were spent in coordinating patient's discharge. Admission HPI Per Admitting Provider Brandie MathewsrosaLexis is a 69yo female with history of DM, HTN, Gout presenting with left shoulder pain. Patient swims at the [facility] 3 times weekly. Over the last several weeks she has developed pain in her left anterior shoulder specifically with performing backstroke. She was swimming today and was doing freestyle and again developed the shoulder pain. She called her PCP and was instructed to come to the ER for concern for possible chest pain. While in the ER patient developed left sided facial numbness and droop as well as numbness/tingling of her LUE. Symptoms resolved after several minutes. Patient still with some dull discomfort in her left shoulder but no additional complaints. ER Course: ASA 324mg Discharge Exam Constitutional General: Comfortable, coherent, cooperative. Wide awake and alert. Not confused, lethargic, or obtunded. Patient speaks in complete, fluent, and articulate sentences without pause, interruption, cough, or wheeze. HEENT: Normocephalic, atraumatic. Pupils equally round and reactive to light. Extra-ocular muscles intact. No nystagmus, gaze paresis, anisocoria, miosis, mydriasis, hyphema, scleral injection, conjunctivitis, or pterygium. No rhinorrhea or otorrhea. No pharyngeal discharge or erythema. Neck: Supple, no stridor, bruit, goiter, hepatojugular reflux. Jugular venous pressure is estimated to be 8 cm above the sternal angle of Nasir, which is estimated to be 5 cm above the level of the right atrium. Lymph: No anterior/posterior cervical, supraclavicular/infraclavicular, axillary, epitrochlear, or inguinal adenopathy. Chest: Symmetric rise and fall with respirations. Lungs: Clear to auscultation and percussion. No audible expiratory wheeze, egophony, pectoriloquy, increase in tactile fremitus, or flatness/dullness to percussion at the bases. Heart: RRR, S1 and S2 noted. No S3 or S4 summation gallop noted. No tripartite friction rub. Grade II/ early systolic murmur @ LLSB without radiation to the carotids, axilla, or back, and which remains invariant in regards to the respiratory cycle. Abdomen: Soft, non-tender, non-distended. No rebound, guarding, Quinones's sign, or organomegaly. Bowel sounds sounds auscultated in all 4 quadrants. Extremities: No clubbing, cyanosis, or edema. 2+ pedal pulses bilaterally. Skin: No decubitus ulcer, exanthem, or enanthem. Neurology: Alert and oriented to person, place, time, and situation. DTR+ and symmetric. 5/5 motor strength in all 4 extremities, both proximally and distally. No pronator drift. No facial droop. Urology: No cagle catheter. No urethral discharge. Psychiatry: No suicidal ideation. No homicidal ideation. Discharge Plan Discharge Items Patient Disposition: Home - Self-Care Reason For Visit: TIA Discharge Diagnosis: TIA, R/O acute CVA Condition on Discharge: Fair Activity: Resume your previous activity Non-emergency contact: Primary Care Provider Call non-emergency contact if: you have any medication questions Follow-up/Referrals: Michelle Wynne PA-C [Primary Care Provider] - 09/18/24 12:45 pm (THIS APPOINTMENT WILL BE WITH DR SUMMERS) Diet: Carb Consistent or DM2, Heart Healthy, Low Fat and Low Sodium (2gm) Addtl Attending Provider Instructions: See your PCP Ms. Michelle Wynne PA-C, within 7 days of hospital discharge. Pending Studies at Discharge: Yes Studies:: ECHO Stand-Alone Forms: [facility], Smoking Cessation, Medications to Prevent Stroke Medications and DC Order Prescriptions: New clopidogrel 75 mg Tablet 75 mg PO QAM Qty: 30 0RF aspirin 81 mg Tablet,Delayed Release (Dr/Ec) 81 mg PO DAILY Qty: 30 0RF Continued (DME) blood sugar diagnostic Strip See Rx Instructions .ROUTE .MEDSUPPLY Qty: 100 3RF Dose Instruction: As directed Rx Instructions: use to test once daily triamcinolone acetonide 0.1 % ointment 1 applic topical BID PRN (Reason: eczema) Qty: 30 0RF lisinopril 5 mg tablet 5 mg PO QAM Qty: 90 3RF (DME) OneTouch Ultra Test Strip See Rx Instructions .Route Qty: 100 3RF Rx Instructions: Use to test once daily valacyclovir 500 mg tablet 500 mg PO BID Qty: 10 5RF (DME) lancets [OneTouch Delica Plus Lancet] 33 gauge misc See Rx Instructions .Route Qty: 100 3RF Rx Instructions: testing one time daily acyclovir [Zovirax] 5 % cream 1 applic TOP 5XD PRN (Reason: outbreak) Qty: 5 3RF allopurinol 100 mg tablet 50 mg PO DAILY Qty: 45 3RF vitamin B complex Tablet 1 tab PO DAILY divalproex [Depakote] 125 mg tablet,delayed release (DR/EC) 250 mg PO QPM Rx Instructions: Takes in addition to the 500 mg daily Systane Balance 0.6 % drops 1 drp ophthalmic (eye) BID Patient Comments: both eyes calcium carbonate 600 mg calcium (1,500 mg) tablet 600 mg PO DAILY alprazolam 0.25 mg tablet 0.5 mg PO HS olanzapine 10 mg tablet 10 mg PO HS cholecalciferol (vitamin D3) 25 mcg (1,000 unit) capsule 25 mcg PO DAILY Qty: 30 0RF olanzapine 2.5 mg tablet 2.5 mg PO HS divalproex [Depakote] 500 mg Tablet,Delayed Release (Dr/Ec) 500 mg PO HS coQ10 (ubiquinol) 100 mg Capsule 100 mg PO BID Probiotic 3 billion cell Capsule 1 cap PO QAM ascorbic acid (vitamin C) [Vitamin C] 500 mg tablet 500 mg PO QAM atorvastatin 10 mg tablet 10 mg PO HS Discharge Orders: Discharge Order (Routine); Ordered 09/15/24 Ordered By: Sloan Allen Admission Data Admit Date/Time: 09/14/24 21:05 Attending Provider: Sloan Allen Admit Provider: Marisel Flynn Primary Care Provider: Michelle Wynne Other Providers: Marisel Flynn Other Interventions: Discharge Summary Assessment (RN) Last Done: 09/15/24 13:04 Hospital Stay Data Consultations 09/14/24 21:08 ED Decision to Admit Stat Diagnostic Imagining Performed 09/14/24 19:01 CT head/brain wo con Stat 09/14/24 19:03 MR angio head wo con Stat MR brain wo con Stat Pending Results Patient Have Any Pending Studies at Discharge: Yes Discharge Instructions Given to Patient (Per Discharging Provider) See your PCP Ms. Michelle Wynne PA-C, within 7 days of hospital discharge. Total Time Total Time Spent Total Time Spent (In Minutes): 35 Coding Level of Care Code 39713 INP/OBS DISCH >30 MIN Diagnoses TIA (transient ischemic attack) G45.9 Acute pain of left shoulder M25.512 Hypertension I10 Diabetes mellitus, type II E11.9 Chronic kidney disease, stage III (moderate) N18.3 Hyperlipidemia E78.5
--- NOTE | 2024-09-15 15:01 | XCELERA ---
[id number]\[id number]
[2024-09-15] MEDS ORDERED: ALPRAZolam 0.5 MG TABLET PO SCH (21:00)
[2024-09-15] MEDS ORDERED: OLANZapine 10 MG TAB PO SCH (21:00)
[2024-09-15] MEDS ORDERED: OLANZAPINE 2.5 MG TAB PO SCH (21:00)
[2024-09-15] MEDS ORDERED: DIVALPROEX DELAY RELEASE 250 MG TABEC PO SCH (21:00)
[2024-09-15] MEDS ORDERED: DIVALPROEX DELAY RELEASE 500 MG TAB PO SCH (21:00)
[2024-09-15] MEDS ORDERED: ATORVASTATIN 10 MG TAB PO SCH (21:00)
--- NOTE | 2024-09-16 10:55 | Pharmacy Report ---
Pharmacist Stroke Counseling - Date of Service September 16, 2024 - Scope: Pharmacy has been consulted to provide medication discharge counseling for this patient admitted with ischemic stroke as per the Pharmacist Discharge Counseling for Stroke Patients Protocol. - Medications on Discharge: Home Medications Medication Instructions Recorded Confirmed coQ10 (ubiquinol) 100 mg capsule 100 mg PO BID 06/26/18 09/14/24 divalproex 500 mg tablet,delayed 500 mg PO HS 06/26/18 09/14/24 release (Depakote) lactobacillus combination no.4 3 1 cap PO QAM 06/26/18 09/14/24 billion cell capsule (Probiotic) vitamin B complex 1 tab PO DAILY 08/16/20 09/14/24 ascorbic acid (vitamin C) 500 mg 500 mg PO QAM 02/20/21 09/14/24 tablet (Vitamin C) propylene glycol 0.6 % eye drops 1 drp ophthalmic (eye) BID 02/20/21 09/14/24 (Systane Balance) alprazolam 0.25 mg tablet 0.5 mg PO HS sleep 09/03/22 09/14/24 calcium carbonate 600 mg PO DAILY 09/03/22 09/15/24 olanzapine 10 mg tablet 10 mg PO HS 10/12/22 09/14/24 olanzapine 2.5 mg tablet 2.5 mg PO HS 03/06/23 09/14/24 divalproex 125 mg tablet,delayed 250 mg PO QPM 09/09/23 09/14/24 release (Depakote) atorvastatin 10 mg tablet 10 mg PO HS 09/14/24 09/14/24 New Rx's Medication Instructions Recorded blood sugar diagnostic #100 ea 10/23/21 cholecalciferol (vitamin D3) 25 25 mcg PO DAILY #30 caps 11/08/22 mcg (1,000 unit) capsule triamcinolone acetonide 0.1 % 1 applic topical BID PRN eczema 07/22/23 topical ointment #30 grams blood sugar [facility] 08/13/23 Ultra Test strips) lisinopril 5 mg tablet 5 mg PO QAM #90 tabs 08/13/23 valacyclovir 500 mg tablet 500 mg PO BID outbreak #10 tabs 11/12/23 lancets 33 gauge (OneTouch Sergio #100 ea 11/13/23 Plus Lancet) acyclovir 5 % topical cream 1 applic topical 5XD PRN outbreak 05/21/24 (Zovirax) #5 grams allopurinol 100 mg tablet 50 mg (1/2 x 100 mg) PO DAILY #45 06/04/24 tabs aspirin 81 mg tablet,delayed 81 mg PO DAILY #30 tabs 09/15/24 release clopidogrel 75 mg tablet 75 mg PO QAM #30 tabs 09/15/24 - Action: The above medications, specifically ones for stroke treatment/prophylaxis, have been reviewed in detail with the patient and/or patient high school admissions representative(s) prior to discharge. This includes indication, common adverse reactions, drug interactions, and medication administration. Medication counseling has been employed using the teach-back method to ensure understanding. - Outcome: The patient and/or patient high school admissions representative(s) have demonstrated understanding of the medications. Additional comments: - patient counseled on DAPT therapy. has follow up with PCP on 10/05/24 and will ask about discontinuing one of these medications after 21 days. Thank you for allowing pharmacy to be involved in the care of this patient. Please call [phone] with any additional questions
--- NOTE | 2024-09-16 19:24 | Electrocardiogram Report ---
Test Reason : Blood Pressure : */* mmHG Vent. Rate : 69 BPM Atrial Rate : 69 BPM P-R Int : 154 ms QRS Dur : 82 ms QT Int : 392 ms P-R-T Axes : 74 4 50 degrees QTcB Int : 420 ms Normal sinus rhythm Low voltage QRS Borderline ECG When compared with ECG of 26-Apr-2019 16:25, No significant change was found Confirmed by Olayinka Harden ([id number]) on 09/16/2024 7:24:07 PM Referred By: Confirmed By: Olayinka Harden
== END 2024-09-15 13:34 | disposition home or self-care (01) ==
LOC: ED 13:22 → EDINP 13:22 → SUATTDRO 21:05 → 2N 09-15 04:43